=== PATIENT | female | born 1945 | race Caucasian/White ===

== ENCOUNTER 2022-03-11 07:01 | Day surgery (SDC) | payer OTHER ==
[2022-03-08 09:46] LABS: Absolute Lymphocytes (CBC) 2.3 K/uL (0.7-4.9); Hematocrit 44.7 % (36.0-45.0); Lymphocytes % 37.2 % (15.3-44.8); RBC Red Blood Cell Count 4.98 M/uL (3.86-4.86)
[2022-03-08 09:56] LABS: Protime INR 0.9
[2022-03-08 09:59] LABS: Potassium 4.3 mmol/L (3.5-5.1)
--- NOTE | 2022-03-08 11:05 | EKG ---
Test Date: 2022-03-08 Test Time: 08:33:44 [employer]: T MEASUREMENT RESULTS: Intervals: Rate: 78 DC: 164 QRSD: 82 QT: 378 QTc: 430 [place]: P: 59 DC: 164 QRS: 23 T: 76 INTERPRETIVE STATEMENTS: Normal sinus rhythm Normal ECG Compared to ECG 05/05/2016 06:34:09 No significant changes Electronically Signed On 03-08-22 11:04:45 CDT by Js Sorensen
[2022-03-11] MEDS: Ringers Lactate 1,000 ML IV ONE ×2 (07:20→07:37)
[2022-03-11] MEDS ORDERED: BUPIVACAINE 0.25% PF 10 ML VIAL ONE ×2 (07:23→07:24)
[2022-03-11] MEDS: CLINDAMYCIN 600MG/D5W 600 MG/50 ML BAG IV SCH ×2 (07:38→08:15)
[2022-03-11] MEDS ORDERED: propofoL 200 MG/20 ML VIAL IV ONE (07:46)
[2022-03-11] MEDS ORDERED: MIDAZOLAM HCL 2 MG/2 ML INJ ONE (07:46)
[2022-03-11] MEDS ORDERED: ONDANSETRON 4 MG/2 ML VIAL ONE ×2 (07:46→08:34)
[2022-03-11] MEDS ORDERED: LIDOCAINE 2% MPF 5 ML VIAL ONE (07:46)
[2022-03-11] MEDS ORDERED: FENTANYL CITR 100 MCG/2 ML ONE (07:46)
[2022-03-11] MEDS ORDERED: dexAMETHasone 10 MG/ML VIAL ONE (08:35)
[2022-03-11] MEDS ORDERED: EPHEDRINE SULF 50 MG/ML VIAL ONE (08:55)
--- NOTE | 2022-03-11 09:15 | P.BOP ---
Preoperative diagnosis: right knee medial meniscus tear, medial femoral condyle chondromalacia Postoperative diagnosis: same, right knee lateral meniscus tear Primary procedure: right knee arthroscopic partial medial meniscectomy Lifter/Driver: NONE,NONE Estimated blood loss: 3 cc Specimen: none Findings: see dictation Anesthesia: General Complications: None Implants: none Fluids & blood products: per anesthesia record; TT: 24 mins @ 300 mmHg Transferred to: Recovery Room Condition: Good
[2022-03-11] MEDS ORDERED: KETOROLAC 30 MG/ML INJ ONE (09:21)
[2022-03-11 13:07] VITALS: BP 131/70; O2SAT 96
[2022-03-11 13:21] VITALS: TEMP 97
--- NOTE | 2022-03-11 20:47 | OP ---
Date of Procedure: 03/11/2022 Surgeon: Glen Bynum MD Preoperative Diagnoses: 1.Right knee medial meniscus tear. 2.Right knee medial femoral condyle chondromalacia. Postoperative Diagnoses: 1.Right knee medial meniscus tear. 2.Right knee medial femoral condyle chondromalacia. 3.Right knee lateral meniscus tear. Procedures Performed: 1.Right knee arthroscopic partial medial meniscectomy. 2.Right knee arthroscopic partial lateral meniscectomy. Anesthesia: General LMA. Fluids: Per Anesthesia record. Estimated Blood Loss: 3 cc. Tourniquet Time: 24 minutes at 300 mmHg. Complications: None. Indication For Procedure: Radha is a 76-year-old female, who presented to my clinic with signs, sym ptoms, and MRI findings consistent with a right knee medial meniscus tear and chondromalacia of the m edial femoral condyle. I discussed with the patient at length risks and benefits associated with ope rative and nonoperative treatment. She expressed understanding and elected to proceed with operative treatment. Description Of Procedure: After informed consent was obtained, the patient was identified in the pre operative holding area. The right lower extremity was marked. The patient was then brought back to the operating room, transferred to the operating table in supine fashion, placed under general LMA an esthesia. The right lower extremity was then prepped and draped in usual sterile fashion. A time-ou t was initiated. Correct patient and procedure were confirmed and identified. The patient did recei ve her preoperative prophylactic antibiotics. The right lower extremity was exsanguinated using an E smarch and the tourniquet was inflated to 300 mmHg. Standard anteromedial and anterolateral portals were created. The arthroscope was brought in via the anterolateral portal and a diagnostic arthrosco py was performed. Arthroscope was then first brought into the patellofemoral joint where the patient was noted to have some grade 3 chondromalacia changes of the trochlear groove. There were no loose bodies found within the medial and lateral gutters. The arthroscope was then brought into the medial compartment where the patient was noted to have some grade 4 chondromalacia of the medial femoral co ndyle. The patient was noted to have a complex tear of the posterior horn and body of the medial men iscus and a partial medial meniscectomy was performed using meniscal biters and arthroscopic shaver t o smooth meniscal borders. After the partial meniscectomy was performed, the meniscus was stable to probe. The arthroscope was then brought in the intercondylar notch. The patient was noted to have a n intact ACL and PCL. The arthroscope was then brought into lateral compartment where the patient wa s noted to have some mild grade 1 chondromalacia changes and a tear at the lateral meniscus body. Pa rtial lateral meniscectomy was then performed using meniscal biters and arthroscopic shaver to smooth meniscal borders. The arthroscopic instruments were then removed without complication. Wounds were then irrigated thoroughly with normal saline. Skin was approximated using a 4-0 Monocryl. Sterile dressings were applied. Tourniquet was let down. The patient was awakened and transferred to PACU i n stable condition. Postoperative Plan: The patient will follow up in one week for wound check. We will order physical therapy for post-meniscectomy protocol to aid with mobilization. KISHOR/BIRDIE Voice ID: [id number] Report ID: [id number]
== END 2022-03-11 10:50 | disposition home or self-care (01) ==
LOC: OR 07:01
PROVIDERS: ATTEND Orthopaedic Surgery Sports Medicine
PROC: 0SBC4ZZ Excision of Right Knee Joint, Percutaneous Endoscopic Approach (ICD-10-PCS; 2022-03-11)
PROC: 0SBC4ZZ Excision of Right Knee Joint, Percutaneous Endoscopic Approach (ICD-10-PCS; principal; 2022-03-11 08:00)
DX: S83.241A Other tear of medial meniscus, current injury, right knee, initial encounter (principal); S83.281A Other tear of lateral meniscus, current injury, right knee, initial encounter; M94.261 Chondromalacia, right knee; Z20.822 Contact with and (suspected) exposure to COVID-19
CPT/HCPCS: 29880; 93005; 85025; 80048; 36415; 85610; 85730; U0002; J2704; J2250; J3010; J1100; J7120; J2405 ×2

== ENCOUNTER 2023-07-27 14:38 | Emergency (ER) | payer OTHER ==
--- OUTSIDE RECORDS SUMMARY | 2023-07-27 14:42 | XMS REPORT | Continuity of Care Document ---
:1945 Author Organization [facility] t Address [address] [facility] [address] [place] [address] Care Team Providers Name Role Phone Julio Hicks MD Primary Care Physician Marilyn Terry Attending Clinician Unavailable [email or web address] Attending Clinician Unavailable FOG_A_Provider Attending Clinician Unavailable Lenard Toure Attending Clinician Unavailable Hussein Pearson MD Attending Clinician Only, Adc Test Attending Clinician Unavailable Hiram Calderon MD Attending Clinician HIRAM CALDERON Attending Clinician Unavailable Doctor Unassigned, [place] Attending Clinician Unavailable Provider, [facility] Attending Clinician Unavailable Phuong Bazan Attending Clinician Dilma Zhao RN Attending Clinician Unavailable Unknown, Attending Attending Clinician Unavailable UNKNOWN, ATTENDING Attending Clinician Unavailable [email or web address]_S Admitting Clinician Unavailable FOG_A_Provider Admitting Clinician Unavailable Lenard Toure Admitting Clinician Unavailable Payers Payer Name Policy Type Policy Number Effective Date Expiration Date S shai GALEANAErnestoDEYSI [id number] 2019 00:00:00 [employer] (MEDICARE [id number] 2022 REPLACEMENT PPO) 00:00:00 MEDICARE PART A \T\ [id number] 2011 B 00:00:00 [employer] INDEMNITY [id number] 2013 00:00:00 Problems Condition Condition Condition Status Onset Resolution Last Treating Co mments Source Name Details Category Date Date Treatment Clinician Date SOB SOB Disease Active 2019-09 [facility] (shortness (shortness 0-06 st of breath) of breath) 00:00: Ho spita 00 l Carotid Carotid Disease Active 2019-09 [facility] bruit bruit 0-06 st 00:00: Hospita 00 l Hyperlipid Hyperlipid Disease Active 2019-09 M ethodi emia emia 0-06 st 00:00: Hospita 00 l No known No known Disease Unive rs active active ity of problems problems [facility] Allergies, Adverse Reactions, Alerts Allergy Allergy Status Severity Reaction(s) Onset Inactive Treating Comm ents Source Name Type Date Date Clinician SULFA Drug Active Hives 2016-09 Univers (SULFONA Class 0-16 ity of MIDE 00:00: [place] ANTIBIOT 00 Medical ICS) Branch Sulfa Propensi Active Hives 2016-09 Univers (Sulfona ty to 0-16 ity of mide adverse 00:00: [place] Antibiot reaction 00 Medica l ics) s Branch Sulfa Propensi Active Hives 2016-09 Methodi (Sulfona ty to 0-16 st mide adverse 00:00: Hospita Antibiot reaction 00 l ics) s to drug ALBUTERO DRUG Active Med Palpitations 2014-09 Un dave L INGREDI 11-03 ity of 00:00: [place] 00 Medical Branch AMOXICIL DRUG Active Med ITCHING 2014-09 Univers ANDREW-POT 11-03 ity of CLAVULAN 00:00: [place] ATE 00 Medical Branch ERGOTAMI DRUG Active Med N/V 2014-09 Univers NE-CAFFE 11-03 ity of INE 00:00: [place] 00 Medical Branch CEFACLOR DRUG Active Med ITCHING 2014-09 Univers INGREDI 11-03 ity of 00:00: [place] 00 Medical Branch CIPROFLO DRUG Active Med ITCHING 2014-09 Univers XACIN INGREDI - ity of 00:00: [place] 00 Medical Branch ROSUVAST DRUG Active Med Other-Cmnt 2014-09 Univ ers ATIN INGREDI 2- ity of CALCIUM 00:00: [place] 00 Medical Branch DOXYCYCL DRUG Active Med ITCHING 2014-09 Univers INE INGREDI 11-03 ity of 00:00: [place] 00 Medical Branch ERYTHROM DRUG Active Med ITCHING 2014-09 Univers YCIN - ity of 00:00: [place] 00 Medical Branch IPRATROP DRUG Active Med Palpitations 2014-09 Un dave IUM INGREDI 11-03 ity of BROMIDE 00:00: [place] 00 Medical Branch ATORVAST DRUG Active Med Other-Cmnt 2014-09 Univ ers ATIN INGREDI - ity of CALCIUM 00:00: [place] 00 Medical Branch SELDANE DRUG Active Med ITCHING 2014-09 Univers 11-03 ity of 00:00: [place] 00 Medical Branch CEFIXIME DRUG Active Med ITCHING 2014-09 Univers INGREDI 11-03 ity of 00:00: [place] 00 Medical Branch FENOFIBR DRUG Active Med Other-Cmnt 2014-09 Univ ers ATE 11-03 ity of MICRONIZ 00:00: [place] ED 00 Medical Branch EZETIMIB DRUG Active Med Other-Cmnt 2014-09 Univ ers E-SIMVAS -09 ity of TATIN 00:00: [place] 00 Medical Branch SIMVASTA DRUG Active Med Other-Cmnt 2014-09 Univ ers TIN INGREDI 11-03 ity of 00:00: [place] 00 Medical Branch Erythrom Propensi Active Rash 2014-09 Method i ycin ty to 11-03 st adverse 00:00: Hospita reaction 00 l s to drug Ezetimib Propensi Active Other (See 2014-09 Leg [facility] e-Simvas ty to Comments) 11-[address] tatin adverse 00:00: Hospita reaction 00 l s to drug Fenofibr Propensi Active Other (See 2014-09 Leg [facility] ate ty to Comments) 11-[address] Microniz adverse 00:00: Hospita ed reaction 00 l s to drug Ipratrop Propensi Active Palpitations 2014-09 Methodi ium ty to 11-03 st [place] adverse 00:00: Hospita reaction 00 l s to drug Rosuvast Propensi Active Other (See 2014-09 Leg Me [facility] atin ty to Comments) 11-[address] Calcium adverse 00:00: Hospita reaction 00 l s to drug Seldane Propensi Active Rash 2014-09 Methodi ty to 11-03 st adverse 00:00: Hospita reaction 00 l s to drug Simvasta Propensi Active Other (See 2014-09 Issues Me thodi tin ty to Comments) 11-[address] adverse 00:00: liver Hospita reaction 00 function l s to drug Albutero Propensi Active Palpitations 2014-09 Methodi l ty to 11-03 st adverse 00:00: Hospita reaction 00 l s to drug Amoxicil Propensi Active Rash 2014-09 Method i andrew-Pot ty to 11-03 Clavulan adverse 00:00: Hospita ate reaction 00 l s to drug Atorvast Propensi Active Other (See 2014-09 Leg [facility] atin ty to Comments) 11-[address] Calcium adverse 00:00: Hospita reaction 00 l s to drug Cefaclor Propensi Active Rash 2014-09 Method i ty to 11-03 adverse 00:00: Hospita reaction 00 l s to drug Cefixime Propensi Active Rash 2014-09 Method i ty to 11-03 adverse 00:00: Hospita reaction 00 l s to drug Ciproflo Propensi Active Rash 2014-09 Method i xacin ty to 11-03 adverse 00:00: Hospita reaction 00 l s to drug Doxycycl Propensi Active Rash 2014-09 Method i ine ty to 11-03 adverse 00:00: Hospita reaction 00 l s to drug Ergotami Propensi Active Other (See 2014-09 Me thodi ne-Caffe ty to Comments) 11-03 st ine adverse 00:00: Hospita reaction 00 l s to drug Social History Social Habit Start Date Stop Date Quantity Comments Source Gender [facility] St[facility] al History SDOH [facility] SDND [facility] Comment Hospital Exposure to Not sure University of SARS-CoV-2 (event) [facility] Sexual orientation [facility] Tobacco use and 2020-10-22 2020-10-22 Never used Universit y of exposure 00:00:00 00:00:00 [facility] History SDOH 2020-06-30 2020-06-30 1 [facility] Frequency 00:00:00 00:00:00 Hospita l Alcohol intake 2020-06-30 2020-06-30 Lifetime [facility] 00:00:00 00:00:00 non-drinker Hospital (finding) History of Social 2020-06-30 2020-06-[address] function 00:00:00 00:00:00 Hospital Sex Ass[birth year] At [birth year] [facility] 00:00[facility]00 Hospital Smoking Status Start Date Stop Date Source Never smoker [facility] Branch Medications Ordered Filled Start Stop Current Ordering Indication Dosage Frequency Signature Comments Components Source Medication Medication Date Date Medication? Clinician (SIG) Name Name DULoxetine 2020- No TAKE 1 Univ ers 30 mg 10-01 CAPSULE BY ity of capsule 00:00: 00:00 MOUTH ONCE [place] as 00 :00 A DAY . Medical TOTAL DOSE Branch 90MG lamoTRIgine 2019-09 Yes 25mg Q.5D Take 25 mg Methodi (LaMICtal) 0-[address] 25 MG 15:00: (two) Hospita tablet 40 times a l day. fluticasone 2019-09 Yes Inhale. Met hodi furoate 0-06 st (Arnuity 15:00: Hospita Ellipta) 40 l 200 mcg/actuati on blister with device methylpheni 2019-09 Yes 54mg Take 54 mg Methodi date HCl 0-[address] (CONCERTA) 15:00: Hospita 54 MG CR 40 l tablet fluticasone 2019-09 Yes 1{spray 1 spray Methodi propionate 0-06 } into each st (FLONASE) 15:00: nostril. Hosp yury 50 40 l mcg/actuati on nasal spray etodolac 2019-09 Yes 400mg Take 400 Meth chin (LODINE) 0-[address] 400 MG 15:00: mouth. Hospita tablet 40 l metoprolol 2019- Yes 50mg Q.5D Take 50 mg M ethodi tartrate 0-[address] (LOPRESSOR) 15:00: (two) Hospi ta 50 mg 40 times a l tablet day. methylpheni 2019- Yes 54mg Take 54 mg Methodi date HCl 0-[address] (CONCERTA) 15:00: Hospita 54 MG CR 40 l tablet fluticasone 2019-09 Yes 1{spray 1 spray Methodi propionate 0-06 } into each st (FLONASE) 15:00: nostril. Hosp yury 50 40 l mcg/actuati on nasal spray etodolac 2019-09 Yes 400mg Take 400 Meth chin (LODINE) 0-[address] 400 MG 15:00: mouth. Hospita tablet 40 l metoprolol 2019-09 Yes 50mg Q.5D Take 50 mg M ethodi tartrate 0-[address] (LOPRESSOR) 15:00: (two) Hospi ta 50 mg 40 times a l tablet day. olopatadine 2019-09 Yes Apply to Me thodi (Pazeo) 0.7 0-[address] % drops 15:00: Hospita 40 l lamoTRIgine 2019-09 Yes 25mg Q.5D Take 25 mg Methodi (LaMICtal) 0-[address] 25 MG 15:00: (two) Hospita tablet 40 times a l day. fluticasone 2019-09 Yes Inhale. Met hodi furoate 0-06 st (Arnuity 15:00: Hospita Ellipta) 40 l 200 mcg/actuati on blister with device olopatadine 2019-09 Yes Apply to Me thodi (Pazeo) 0.7 0-[address] % drops 15:00: Hospita 40 l lamoTRIgine 2019-09 Yes 25mg Q.5D Take 25 mg Methodi (LaMICtal) 0-[address] 25 MG 15:00: (two) Hospita tablet 40 times a l day. fluticasone 2019-09 Yes Inhale. Met hodi furoate 0-06 st (Arnuity 15:00: Hospita Ellipta) 40 l 200 mcg/actuati on blister with device methylpheni 2019-09 Yes 54mg Take 54 mg Methodi date HCl 0-[address] (CONCERTA) 15:00: Hospita 54 MG CR 40 l tablet fluticasone 2019-09 Yes 1{spray 1 spray Methodi propionate 0-06 } into each st (FLONASE) 15:00: nostril. Hosp yury 50 40 l mcg/actuati on nasal spray etodolac 2019- Yes 400mg Take 400 Meth chin (LODINE) 0-[address] 400 MG 15:00: mouth. Hospita tablet 40 l metoprolol 2020- Yes 50mg Q.5D Take 50 mg M ethodi tartrate 0-[address] (LOPRESSOR) 15:00: (two) Hospi ta 50 mg 40 times a l tablet day. olopatadine 2019-09 Yes Apply to Me thodi (Pazeo) 0.7 0-[address] % drops 15:00: Hospita 40 l lamoTRIgine 2020- Yes 25mg Q.5D Take 25 mg Methodi (LaMICtal) 0-[address] 25 MG 15:00: (two) Hospita tablet 40 times a l day. fluticasone 2019- Yes Inhale. Met hodi furoate 0-06 st (Arnuity 15:00: Hospita Ellipta) 40 l 200 mcg/actuati on blister with device methylpheni 2019-09 Yes 54mg Take 54 mg Methodi date HCl 0-[address] (CONCERTA) 15:00: Hospita 54 MG CR 40 l tablet fluticasone 2019-09 Yes 1{spray 1 spray Methodi propionate 0-06 } into each st (FLONASE) 15:00: nostril. Hosp yury 50 40 l mcg/actuati on nasal spray etodolac 2019-09 Yes 400mg Take 400 Meth chin (LODINE) 0-[address] 400 MG 15:00: mouth. Hospita tablet 40 l metoprolol 2020- Yes 50mg Q.5D Take 50 mg M ethodi tartrate 0-[address] (LOPRESSOR) 15:00: (two) Hospi ta 50 mg 40 times a l tablet day. olopatadine 2019- Yes Apply to Me thodi (Pazeo) 0.7 0-[address] % drops 15:00: Hospita 40 l lamoTRIgine 2020- Yes 25mg Q.5D Take 25 mg Methodi (LaMICtal) 0-[address] 25 MG 15:00: (two) Hospita tablet 40 times a l day. fluticasone 2020- Yes Inhale. Met hodi furoate 0-06 st (Arnuity 15:00: Hospita Ellipta) 40 l 200 mcg/actuati on blister with device methylpheni 2020-1 Yes 54mg Take 54 mg Methodi date HCl 0-[address] (CONCERTA) 15:00: Hospita 54 MG CR 40 l tablet fluticasone 2019-09 Yes 1{spray 1 spray Methodi propionate 0-06 } into each st (FLONASE) 15:00: nostril. Hosp yury 50 40 l mcg/actuati on nasal spray etodolac 2019- Yes 400mg Take 400 Meth chin (LODINE) 0-[address] 400 MG 15:00: mouth. Hospita tablet 40 l metoprolol 2019- Yes 50mg Q.5D Take 50 mg M ethodi tartrate 0-[address] (LOPRESSOR) 15:00: (two) Hospi ta 50 mg 40 times a l tablet day. olopatadine 2019-09 Yes Apply to Me thodi (Pazeo) 0.7 0-[address] % drops 15:00: Hospita 40 l lamoTRIgine 2019-09 Yes 25mg Q.5D Take 25 mg Methodi (LaMICtal) 0-[address] 25 MG 15:00: (two) Hospita tablet 40 times a l day. fluticasone 2019-09 Yes Inhale. Met hodi furoate 0-06 st (Arnuity 15:00: Hospita Ellipta) 40 l 200 mcg/actuati on blister with device methylpheni 2019- Yes 54mg Take 54 mg Methodi date HCl 0-[address] (CONCERTA) 15:00: Hospita 54 MG CR 40 l tablet fluticasone 2019- Yes 1{spray 1 spray Methodi propionate 0-06 } into each st (FLONASE) 15:00: nostril. Hosp yury 50 40 l mcg/actuati on nasal spray etodolac 2019- Yes 400mg Take 400 Meth chin (LODINE) 0-[address] 400 MG 15:00: mouth. Hospita tablet 40 l metoprolol 2020- Yes 50mg Q.5D Take 50 mg M ethodi tartrate 0-[address] (LOPRESSOR) 15:00: (two) Hospi ta 50 mg 40 times a l tablet day. olopatadine 2019- Yes Apply to Me thodi (Pazeo) 0.7 0-[address] % drops 15:00: Hospita 40 l lamoTRIgine 2020- Yes 25mg Q.5D Take 25 mg Method[facility] (LaMICtal) 0-[address] 25 MG 15:00: (two) Hospita tablet 40 times a l day. fluticasone 2019- Yes Inhale. Met hodi furoate 0-06 st (Arnuity 15:00: Hospita Ellipta) 40 l 200 mcg/actuati on blister with device methylpheni 2019-1 Yes 54mg Take 54 mg Method[facility] date HCl 0-[address] (CONCERTA) 15:00: Hospita 54 MG CR 40 l tablet fluticasone 2019-09 Yes 1{spray 1 spray Methodi propionate 0-06 } into each st (FLONASE) 15:00: nostril. Hosp yury 50 40 l mcg/actuati on nasal spray etodolac 2019-09 Yes 400mg Take 400 Meth chin (LODINE) 0-[address] 400 MG 15:00: mouth. Hospita tablet 40 l metoprolol 2019- Yes 50mg Q.5D Take 50 mg M ethodi tartrate 0-[address] (LOPRESSOR) 15:00: (two) Hospi ta 50 mg 40 times a l tablet day. olopatadine 2019-09 Yes Apply to Me thodi (Pazeo) 0.7 0-[address] % drops 15:00: Hospita 40 l lamoTRIgine 2019- Yes 25mg Q.5D Take 25 mg Methodi (LaMICtal) 0-[address] 25 MG 15:00: (two) Hospita tablet 40 times a l day. fluticasone 2019- Yes Inhale. Met hodi furoate 0-06 st (Arnuity 15:00: Hospita Ellipta) 40 l 200 mcg/actuati on blister with device methylpheni 2019-1 Yes 54mg Take 54 mg Methodi date HCl 0-[address] (CONCERTA) 15:00: Hospita 54 MG CR 40 l tablet fluticasone 2019- Yes 1{spray 1 spray Methodi propionate 0-06 } into each st (FLONASE) 15:00: nostril. Hosp yury 50 40 l mcg/actuati on nasal spray etodolac 2019-09 Yes 400mg Take 400 Meth chin (LODINE) 0-[address] 400 MG 15:00: mouth. Hospita tablet 40 l metoprolol 2019-09 Yes 50mg Q.5D Take 50 mg M ethodi tartrate 0-[address] (LOPRESSOR) 15:00: (two) Hospi ta 50 mg 40 times a l tablet day. olopatadine 2019-09 Yes Apply to Me thodi (Pazeo) 0.7 0-[address] % drops 15:00: Hospita 40 l DULoxetine Yes TK 1 C PO Me thodi (CYMBALTA) 9-[address] 60 MG 00:00: Hospita capsule 00 l DULoxetine Yes TK 1 C PO Me thodi (CYMBALTA) 9-[address] 60 MG 00:00: Hospita capsule 00 l DULoxetine Yes TK 1 C PO Me thodi (CYMBALTA) 9-[address] 60 MG 00:00: Hospita capsule 00 l DULoxetine Yes TK 1 C PO Me thodi (CYMBALTA) 9-[address] 60 MG 00:00: Hospita capsule 00 l DULoxetine Yes TK 1 C PO Me thodi (CYMBALTA) 9-[address] 60 MG 00:00: Hospita capsule 00 l DULoxetine Yes TK 1 C PO Me thodi (CYMBALTA) 9-[address] 60 MG 00:00: Hospita capsule 00 l DULoxetine Yes TK 1 C PO Me thodi (CYMBALTA) 9-[address] 60 MG 00:00: Hospita capsule 00 l DULoxetine Yes TK 1 C PO Me thodi (CYMBALTA) 9-[address] 60 MG 00:00: Hospita capsule 00 l rosuvastati Yes TAKE 1 Meth chin n (CRESTOR) 9-[address] 10 mg 00:00: EVERY DAY Hospita tablet 00 l rosuvastati Yes TAKE 1 Meth chin n (CRESTOR) 9-[address] 10 mg 00:00: EVERY DAY Hospita tablet 00 l rosuvastati Yes TAKE 1 Meth chin n (CRESTOR) 9-[address] 10 mg 00:00: EVERY DAY Hospita tablet 00 l rosuvastati Yes TAKE 1 Meth chin n (CRESTOR) 9-[address] 10 mg 00:00: EVERY DAY Hospita tablet 00 l rosuvastati Yes TAKE 1 Meth chin n (CRESTOR) 9-[address] 10 mg 00:00: EVERY DAY Hospita tablet 00 l rosuvastati Yes TAKE 1 Meth chin n (CRESTOR) 9-[address] 10 mg 00:00: EVERY DAY Hospita tablet 00 l rosuvastati Yes TAKE 1 Meth chin n (CRESTOR) 9-[address] 10 mg 00:00: EVERY DAY Hospita tablet 00 l rosuvastati Yes TAKE 1 Meth chin n (CRESTOR) 9-[address] 10 mg 00:00: EVERY DAY Hospita tablet 00 l beclomethas 2014-09 Yes 1{puff} Inhale 1 Univers one 2-17 Puff ity of dipropionat 17:38: [place] (QVAR[place] 80 29 Medical mcg/actuati Branch on inhaler fluticasone 2014-09 Yes 1{spray Use 1 Un dave (FLONASE) 2-17 } [place] in ity of 50 17:38: each [facility]/actuati nostril Medic al on nasal daily. Branch spray etodolac 2014-09 Yes 400mg Take 400 Univ ers (LODINE) 2-17 mg by ity of 400 mg 17:38: mouth [place] tablet 29 daily. Medical Branch traZODONE 2014-09 Yes 100mg Take 100 Uni vers (DESYREL) 2-17 mg by ity of 100 mg 17:38: mouth at [place] tablet 29 bedtime. Medical Branch aspirin 81 2014-09 Yes 81mg Take 81 mg U nivers mg EC 2-17 by mouth ity of tablet 17:38: daily. [place] [address] Medical Branch CALCIUM 2014-09 Yes 1{tbl} Take 1 Tab Un dave CARB/VIT 2-17 by mouth ity of D2/MINERALS 17:38: daily. [place] s (CALTRATE 29 Medical PLUS ORAL) Branch MULTIVITAMI 2014-09 Yes 1{tbl} Take 1 Tab Univers N ORAL 2-17 by mouth ity of 17:38: daily. [address] Branch beclomethas 2014-09 Yes 1{puff} Inhale 1 Univers one 2-17 Puff daily ity of dipropionat 17:38: [place] (QVAR[place] 80 29 meal. Medical mcg/actuati Branch on inhaler metoprolol 2014-09 Yes 25mg Take 25 mg U nivers tartrate 2-17 by mouth 2 ity o f (LOPRESSOR) 17:38: (two) [place] 25 mg 29 times Medical tablet daily. Branch Indication s: Pt takes for migraines, not high BP DULoxetine 2014-09 Yes 60mg Take 60 mg U nivers (CYMBALTA) 2-17 by mouth ity o f 60 mg 17:38: daily. [place] capsule 29 Medical Branch methylpheni 2014-09 Yes 54mg Take 54 mg Univers date 2-17 by mouth ity of (CONCERTA) 17:38: daily. [place] 54 mg 24 hr 29 Medical tablet Branch L-Methylfol 2014-09 Yes 1{tbl} Take 1 Tab Univers ate 2-17 by mouth ity of (DEPLIN) 15 17:38: [place]. [place] Tab 29 [facility] Branch lamoTRIgine 2014-09 Yes 50mg Take 50 mg Univers (LAMICTAL) 2-17 by mouth ity o f 100 mg 17:38: daily. [place] tablet 29 Medical Branch beclomethas 2014-09 Yes 1{puff} Inhale 1 Univers one 2-17 Puff ity of dipropionat 17:38: [place]. [place] (QVAR[place] 80 29 Medical [facility]/actuati Branch on inhaler fluticasone 2014-09 Yes 1{spray Use 1 Un dave (FLONASE) 2-17 } [place] in ity of 50 17:38: each [facility] Medic al on nasal daily. Branch spray etodolac 2014-09 Yes 400mg Take 400 Univ ers (LODINE) 2-17 mg by ity of 400 mg 17:38: mouth [place] tablet 29 daily. Medical Branch traZODONE 2014-09 Yes 100mg Take 100 Uni vers (DESYREL) 2-17 mg by ity of 100 mg 17:38: mouth at [place] tablet 29 bedtime. Medical Branch aspirin 81 2014-09 Yes 81mg Take 81 mg U nivers mg EC 2-17 by mouth ity of tablet 17:38: daily. [address] Branch CALCIUM 2014-09 Yes 1{tbl} Take 1 Tab Un dave CARB/VIT 2-17 by mouth ity of D2/MINERALS 17:38: [place]. [place] (CALTRATE 29 Medical PLUS ORAL) Branch MULTIVITAMI 2014-09 Yes 1{tbl} Take 1 Tab Univers N ORAL 2-17 by mouth ity of 17:38: daily. [address] Branch beclomethas 2014-09 Yes 1{puff} Inhale 1 Univers one 2-17 Puff daily ity of dipropionat 17:38: [place] (QVAR[place] 80 29 meal. Medical mcg/actuati Branch on inhaler metoprolol 2014-09 Yes 25mg Take 25 mg U nivers tartrate 2-17 by mouth 2 ity o f (LOPRESSOR) 17:38: (two) [place] 25 mg 29 times Medical tablet daily. Branch Indication s: Pt takes for migraines, not high BP DULoxetine 2014-09 Yes 60mg Take 60 mg U nivers (CYMBALTA) 2-17 by mouth ity o f 60 mg 17:38: daily. [place] capsule 29 [facility] Branch methylpheni 2014-09 Yes 54mg Take 54 mg Univers date 2-17 by mouth ity of (CONCERTA) 17:38: daily. [place] 54 mg 24 hr 29 Medical tablet Branch L-Methylfol 2014-09 Yes 1{tbl} Take 1 Tab Univers ate 2-17 by mouth ity of (DEPLIN) 15 17:38: daily. [place] mg Tab 29 Medical Branch lamoTRIgine 2014-09 Yes 50mg Take 50 mg Univers (LAMICTAL) 2-17 by mouth ity o f 100 mg 17:38: daily. [place] tablet 29 Medical Branch beclomethas 2014-09 Yes 1{puff} Inhale 1 Univers one 2-17 Puff ity of dipropionat 17:38: daily. [place] (QVAR) 80 29 Medical mcg/actuati Branch on inhaler fluticasone 2014-09 Yes 1{spray Use 1 Un dave (FLONASE) 2-17 } [place] in ity of 50 17:38: each [facility]/actuati 29 nostril Medic al on nasal daily. Branch spray etodolac 2014-09 Yes 400mg Take 400 Univ ers (LODINE) 2-17 mg by ity of 400 mg 17:38: mouth [place] tablet 29 daily. Medical Branch traZODONE 2014-09 Yes 100mg Take 100 Uni vers (DESYREL) 2-17 mg by ity of 100 mg 17:38: mouth at [place] tablet 29 bedtime. Medical Branch aspirin 81 2014-09 Yes 81mg Take 81 mg U nivers mg EC 2-17 by mouth ity of tablet 17:38: daily. [address] Branch CALCIUM 2014-09 Yes 1{tbl} Take 1 Tab Un dave CARB/VIT 2-17 by mouth ity of D2/MINERALS 17:38: daily. [place] (CALTRATE 29 Medical PLUS ORAL) Branch MULTIVITAMI 2014-09 Yes 1{tbl} Take 1 Tab Univers N ORAL 2-17 by mouth ity of 17:38: daily. [address] Branch beclomethas 2014-09 Yes 1{puff} Inhale 1 Univers one 2-17 Puff daily ity of dipropionat 17:38: [place] (QVAR[place] 80 29 meal. Medical [facility] [place]/actuati Branch on inhaler metoprolol 2014-09 Yes 25mg Take 25 mg U nivers tartrate 2-17 by mouth 2 ity o f (LOPRESSOR) 17:38: (two) [place] 25 mg 29 times Medical tablet daily. Branch Indication s: Pt takes for migraines, not high BP DULoxetine 2014-09 Yes 60mg Take 60 mg U nivers (CYMBALTA) 2-17 by mouth ity o f 60 mg 17:38: daily. [place] capsule 29 [facility] Branch methylpheni 2014-09 Yes 54mg Take 54 mg Univers date 2-17 by mouth ity of (CONCERTA) 17:38: daily. [place] 54 mg 24 hr 29 Medical tablet Branch L-Methylfol 2014-09 Yes 1{tbl} Take 1 Tab Univers ate 2-17 by mouth ity of (DEPLIN) 15 17:38: daily. [place] Tab 29 Medical Branch lamoTRIgine 2014-09 Yes 50mg Take 50 mg Univers (LAMICTAL) 2-17 by mouth ity o f 100 mg 17:38: daily. [place] tablet Medical Branch beclomethas 2014-09 Yes 1{puff} Inhale 1 Univers one 2-17 Puff ity of dipropionat 17:38: daily. [place] (QVAR) 80 29 Medical mcg/actuati Branch on inhaler fluticasone 2014-09 Yes 1{spray Use 1 Un dave (FLONASE) 2-17 } [place] in ity of 50 17:38: each [facility]/actuati 29 nostril Medic al on nasal daily. Branch spray etodolac 2014-09 Yes 400mg Take 400 Univ ers (LODINE) 2-17 mg by ity of 400 mg 17:38: mouth [place] tablet 29 daily. Medical Branch traZODONE 2014-09 Yes 100mg Take 100 Uni vers (DESYREL) 2-17 mg by ity of 100 mg 17:38: mouth at [place] tablet 29 bedtime. Medical Branch aspirin 81 2014-09 Yes 81mg Take 81 mg U nivers mg EC 2-17 by mouth ity of tablet 17:38: daily. [address] Branch CALCIUM 2014-09 Yes 1{tbl} Take 1 Tab Un dave CARB/VIT 2-17 by mouth ity of D2/MINERALS 17:38: daily. [place] (CALTRATE 29 Medical PLUS ORAL) Branch MULTIVITAMI 2014-09 Yes 1{tbl} Take 1 Tab Univers N ORAL 2-17 by mouth ity of 17:38: daily. [address] Branch beclomethas 2014-09 Yes 1{puff} Inhale 1 Univers one 2-17 Puff daily ity of dipropionat 17:38: before [place] (QVAR) 80 29 meal. Medical [facility] [place]/actuati Branch on inhaler metoprolol 2014-09 Yes 25mg Take 25 mg U nivers tartrate 2-17 by mouth 2 ity o f (LOPRESSOR) 17:38: (two) [place] 25 mg 29 times Medical tablet daily. Branch Indication s: Pt takes for migraines, not high BP DULoxetine 2014-09 Yes 60mg Take 60 mg U nivers (CYMBALTA) 2-17 by mouth ity o f 60 mg 17:38: daily. [place] capsule 29 Medical Branch methylpheni 2014-09 Yes 54mg Take 54 mg Univers date 2-17 by mouth ity of (CONCERTA) 17:38: daily. [place] 54 mg 24 hr 29 Medical tablet Branch L-Methylfol 2014-09 Yes 1{tbl} Take 1 Tab Univers ate 2-17 by mouth ity of (DEPLIN) 15 17:38: daily. [place] mg Tab 29 Medical Branch lamoTRIgine 2014-09 Yes 50mg Take 50 mg Univers (LAMICTAL) 2-17 by mouth ity o f 100 mg 17:38: daily. [place] tablet 29 Medical Branch beclomethas 2014-09 Yes 1{puff} Inhale 1 Univers one 2-17 Puff ity of [place] 17:38: [place] (QVAR[place] 80 29 Medical mcg/actuati Branch on inhaler fluticasone 2014-09 Yes 1{spray Use 1 Un dave (FLONASE) 2-17 } [place] in ity of 50 17:38: each [facility]/actuati nostril Medic al on nasal daily. Branch spray etodolac 2014-09 Yes 400mg Take 400 Univ ers (LODINE) 2-17 mg by ity of 400 mg 17:38: mouth [place] tablet 29 daily. Medical Branch traZODONE 2014-09 Yes 100mg Take 100 Uni vers (DESYREL) 2-17 mg by ity of 100 mg 17:38: mouth at [place] tablet 29 bedtime. Medical Branch aspirin 81 2014-09 Yes 81mg Take 81 mg U nivers mg EC 2-17 by mouth ity of tablet 17:38: daily. [address] Branch CALCIUM 2014-09 Yes 1{tbl} Take 1 Tab Un dave CARB/VIT 2-17 by mouth ity of D2/MINERALS 17:38: [place]. [place] (CALTRATE 29 Medical PLUS ORAL) Branch MULTIVITAMI 2014-09 Yes 1{tbl} Take 1 Tab Univers N ORAL 2-17 by mouth ity of 17:38: daily. [address] Branch beclomethas 2014-09 Yes 1{puff} Inhale 1 Univers one 2-17 Puff daily [place]y of dipropion[place] 17:38: [place] (QVAR[place] 80 29 meal. Medical mcg/actuati Branch on inhaler metoprolol 2014-09 Yes 25mg Take 25 mg U nivers tartrate 2-17 by mouth 2 ity o f (LOPRESSOR) 17:38: (two) [place] 25 mg 29 times Medical tablet daily. Branch Indication s: Pt takes for migraines, not high BP DULoxetine 2014-09 Yes 60mg Take 60 mg U nivers (CYMBALTA) 2-17 by mouth ity o f 60 mg 17:38: daily. [place] capsule 29 Medical Branch methylpheni 2014-09 Yes 54mg Take 54 mg Univers date 2-17 by mouth ity of (CONCERTA) 17:38: daily. [place] 54 mg 24 hr 29 Medical tablet Branch L-Methylfol 2014-09 Yes 1{tbl} Take 1 Tab Univers ate 2-17 by mouth ity of (DEPLIN) 15 17:38: [place]. [place] mg Tab 29 Medical Branch lamoTRIgine 2014-09 Yes 50mg Take 50 mg Univers (LAMICTAL) 2-17 by mouth ity o f 100 mg 17:38: daily. [place] tablet Medical Branch beclomethas 2014-09 Yes 1{puff} Inhale 1 Univers one 2-17 Puff ity of dipropionat 17:38: daily. [place] (QVAR) 80 Medical mcg/actuati Branch on inhaler fluticasone 2014-09 Yes 1{spray Use 1 Un dave (FLONASE) 2-17 } [place] in ity of 50 17:38: each [place] mcg/actuati 29 nostril Medic al on nasal daily. Branch spray etodolac 2014-09 Yes 400mg Take 400 Univ ers (LODINE) 2-17 mg by ity of 400 mg 17:38: mouth [place] tablet 29 daily. Medical Branch traZODONE 2014-09 Yes 100mg Take 100 Uni vers (DESYREL) 2-17 mg by ity of 100 mg 17:38: mouth at [place] tablet 29 bedtime. Medical Branch aspirin 81 2014-09 Yes 81mg Take 81 mg U nivers mg EC 2-17 by mouth ity of tablet 17:38: daily. [address] Branch CALCIUM 2014-09 Yes 1{tbl} Take 1 Tab Un dave CARB/VIT 2-17 by mouth ity of D2/MINERALS 17:38: [place]. [place] (CALTRATE 29 Medical PLUS ORAL) Branch MULTIVITAMI 2014-09 Yes 1{tbl} Take 1 Tab Univers N ORAL 2-17 by mouth ity of 17:38: daily. [place] [address] Medical Branch beclomethas 2014-09 Yes 1{puff} Inhale 1 Univers one 2-17 Puff daily ity of dipropionat 17:38: [place] (QVAR[place] 80 29 meal. Medical mcg/actuati Branch on inhaler metoprolol 2014-09 Yes 25mg Take 25 mg U nivers tartrate 2-17 by mouth 2 ity o f (LOPRESSOR) 17:38: (two) [place] 25 mg 29 times Medical tablet daily. Branch Indication s: Pt takes for migraines, not high BP DULoxetine 2014-09 Yes 60mg Take 60 mg U nivers (CYMBALTA) 2-17 by mouth ity o f 60 mg 17:38: daily. [place] capsule [address] [place] [address] Branch methylpheni 2014-09 Yes 54mg Take 54 mg Univers date 2-17 by mouth ity of (CONCERTA) 17:38: daily. [place] 54 mg 24 hr 29 Medical tablet Branch L-Methylfol 2014-09 Yes 1{tbl} Take 1 Tab Univers ate 2-17 by mouth ity of (DEPLIN) 15 17:38: [place]. [place] mg Tab 29 Medical Branch lamoTRIgine 2014-09 Yes 50mg Take 50 mg Univers (LAMICTAL) 2-17 by mouth ity o f 100 mg 17:38: daily. [place] tablet Medical [place] Vital Signs Vital Name Observation Time Observation Value Comments Source Heart rate 2020-10-22 19:02:00 114 /min [facility] Oxygen saturation in 2020-10-22 19:02:00 96 /min [facility] Arterial blood by [facility] Pulse oximetry Branch Systolic blood 2020-10-22 17:49:00 145 mm[Hg] Univer sity of pressure [facility] Diastolic blood 2020-10-22 17:49:00 84 mm[Hg] Unive rsity of pressure [facility] Body temperature 2020-10-22 17:49:00 37.33 [facility] height 2020-10-22 17:49:00 160 cm [facility] Body weight 2020-10-22 17:49:00 75.751 kg [facility] [place] [facility] BMI 2020-10-22 17:49:00 29.58 kg/m2 [facility] [place] [facility] Systolic blood 2020-08-29 01:02:00 185 mm[Hg] Univer sity of pressure [place] [facility] Diastolic blood 2020-08-29 01:02:00 101 mm[Hg] Unive rsity of pressure [place] [facility] Heart rate 2020-08-29 00:56:00 72 /min [facility] [place] [facility] Body temperature 2020-08-29 00:56:00 36.22 Valarie Univ ersity of [place] [facility] Respiratory rate 2020-08-29 00:56:00 18 /min Univ ersity [facility] [place] [facility] Body height 2020-08-29 00:56:00 161.3 cm [facility] [place] [facility] Body weight 2020-08-29 00:56:00 75.297 kg [facility] [place] [facility] BMI 2020-08-29 00:56:00 28.94 kg/m2 [facility] [place] [facility] Oxygen saturation in 2020-08-29 00:56:00 100 /min University of Arterial blood by [facility] [place] larissa Pulse oximetry Branch Systolic blood 2020-08-29 01:02:00 185 mm[Hg] Univer sity of pressure [facility] Branch Diastolic blood 2020-08-29 01:02:00 101 mm[Hg] Unive rsity of pressure [place] [facility] Heart rate 2020-08-29 00:56:00 72 /min [facility] [place] [facility] Body temperature 2020-08-29 00:56:00 36.22 Valarie Univ ersity of [place] [facility] Respiratory rate 2020-08-29 00:56:00 18 /min Univ ersity [facility] [place] [facility] Body height 2020-08-29 00:56:00 161.3 cm [facility] [place] [facility] Body weight 2020-08-29 00:56:00 75.297 kg [facility] [place] [facility] BMI 2020-08-29 00:56:00 28.94 kg/m2 [facility] [place] [facility] Oxygen saturation in 2020-08-29 00:56:00 100 /min University of Arterial blood by [place] [facility] larissa Pulse oximetry Branch Procedures Procedure Date / Time Performing Clinician Source Performed ASSIGNMENT OF BENEFITS 2020-11-17 20:13:12 Doctor Unassigned, Un [facility] [place] Medical Branch COVID-19 (MOLECULAR 2020-10-22 17:46:00 Phuong Huynh [facility] TESTING Medical Branch NUCLEIC ACID AMPLIFICATION) LAB ONLY COVID 2020-10-22 17:46:00 Phuong Huynh [facility] INTERPRETATION [facility] Branch POCT GRP A STREP 2020-10-22 00:00:00 Phuong Huynh [facility] (MOLECULAR) [facility] Branch POCT FLU A AND B 2020-10-22 00:00:00 Phuong Huynh [facility] (MOLECULAR) Medical Branch Plan of Care Planned Activity Planned Date Details Comments Source Future Scheduled 2023-07-20 COVID-19 VACCINE (#[facility]) [facility] 16:16:27 [code = COVID-19 VACCINE (#1)] Future Scheduled 2023-07-20 [facility] 16:16:27 (procedure) [code = 829800944] Future Scheduled 2023-07-20 [facility] 16[facility]16:27 of 2) [code = SHINGLES VACCINES (1 of 2)] Future Scheduled 2023-07-20 65+ [facility]OCO[address] [facility] Test 16:16:27 VACCINE (1 - PCV) [code = 65+ PNEUMOCOCCAL VACCINE (1 - PCV)] Future Scheduled 2023-07-20 INFLUENZA VACCINE (#[facility] Test 16:16:27 [code = INFLUENZA VACCINE (#1)] Future Scheduled 2023-03-10 COVID-19 VACCINE (#1) [facility] 01:06:42 [code = COVID-19 VACCINE (#1)] Future Scheduled 2023-03-10 [facility] C [facility] 01:06:42 (procedure) [code = [id number]] Future Scheduled 2023-03-10 SHINGLES VACCINES (1 [facility] 01:06:42 of 2) [code = SHINGLES VACCINES (1 of 2)] Future Scheduled 2023-03-10 65+ [facility]OCOCCAL [facility] Test 01:06:42 VACCINE (1 - PCV) [code = 65+ PNEUMOCOCCAL VACCINE (1 - PCV)] Future Scheduled 2023-03-10 INFLUENZA VACCINE [facility] Test 01:06:42 [code = INFLUENZA VACCINE] Future Scheduled 2022-12-30 COVID-19 VACCINE (#1) [facility] 12:10:32 [code = COVID-19 VACCINE (#1)] Future Scheduled 2022-12-30 [facility] 12:10:32 (procedure) [code = [id number]] Future Scheduled 2022-12-30 COLONOSCOPY SCREENING [facility] 12:10:32 [code = COLONOSCOPY SCREENING] Future Scheduled 2022-12-30 [facility]LES [facility]INES ([facility] 12:10:32 of 2) [code = SHINGLES VACCINES (1 of 2)] Future Scheduled 2022-12-30 65+ PNEUMOCOCCAL [facility] Test 12:10:32 VACCINE (1 - PCV) [code = 65+ PNEUMOCOCCAL VACCINE (1 - PCV)] Future Scheduled 2022-12-30 INFLUENZA VACCINE Method [facility] Test 12:10:32 [code = INFLUENZA VACCINE] Future Scheduled 2022-09-09 COVID[facility]19 [facility]INE (#[facility] 03:39:39 [code = COVID-19 VACCINE (#1)] Future Scheduled 2022-09-09 [facility] Test 03:39:39 (procedure) [code = [id number]] Future Scheduled 2022-09-09 [facility] Test 03:39:39 SCREENING [code = BREAST CANCER SCREENING] Future Scheduled 2022-09-09 COLONOSCOPY SCREENING [facility] Test 03:39:39 [code = COLONOSCOPY SCREENING] Future Scheduled 2022-09-09 SHINGLES VACCINES ([facility] 03:39:39 of 2) [code = SHINGLES VACCINES (1 of 2)] Future Scheduled 2022-09-09 65+ PNEUMOCOCCAL [facility] Hospital Test 03:39:39 VACCINE (1 - PCV) [code = 65+ PNEUMOCOCCAL VACCINE (1 - PCV)] Future Scheduled 2022-09-09 INFLUENZA VACCINE Method ist [facility] Test 03:39:39 [code = INFLUENZA VACCINE] Future Scheduled 2022-09-09 COVID-19 VACCINE (#1) [facility] 03:39:39 [code = COVID-19 VACCINE (#1)] Future Scheduled 2022-09-09 Hepatitis C screening [facility] Test 03:39:39 (procedure) [code = [id number]] Future Scheduled 2022-09-09 [facility] Test 03:39:39 SCREENING [code = BREAST CANCER SCREENING] Future Scheduled 2022-09-09 COLONOSCOPY SCREENING [facility] Test 03:39:39 [code = COLONOSCOPY SCREENING] Future Scheduled 2022-09-09 SHINGLES VACCINES (1 [facility] Test 03:39:39 of 2) [code = SHINGLES VACCINES (1 of 2)] Future Scheduled 2022-09-09 65+ PNEUMOCOCCAL [facility]i Hospital Test 03:39:39 VACCINE (1 - PCV) [code = 65+ PNEUMOCOCCAL VACCINE (1 - PCV)] Future Scheduled 2022-09-09 INFLUENZA VACCINE Method ist Hospital Test 03:39:39 [code = INFLUENZA VACCINE] Future Scheduled 2022-09-09 COVID-19 VACCINE (#1) [facility] Hospital Test 03:39:39 [code = COVID-19 VACCINE (#1)] Future Scheduled 2022-09-09 Hepatitis C screening [facility] Test 03:39:39 (procedure) [code = [id number]] Future Scheduled 2022-09-09 [facility] Test 03:39:39 SCREENING [code = BREAST CANCER SCREENING] Future Scheduled 2022-09-09 COLONOSCOPY SCREENING [facility] Test 03:39:39 [code = COLONOSCOPY SCREENING] Future Scheduled 2022-09-09 SHINGLES VACCINES (1 [facility] Test 03:39:39 of 2) [code = SHINGLES VACCINES (1 of 2)] Future Scheduled 2022-09-09 65+ PNEUMOCOCCAL Methodi Hospital Test 03:39:39 VACCINE (1 - PCV) [code = 65+ PNEUMOCOCCAL VACCINE (1 - PCV)] Future Scheduled 2022-09-09 INFLUENZA VACCINE Method ist Hospital Test 03:39:39 [code = INFLUENZA VACCINE] Future Scheduled 2022-09-09 COVID-19 VACCINE (#1) [facility] Test 03:39:39 [code = COVID-19 VACCINE (#1)] Future Scheduled 2022-09-09 Hepatitis C screening [facility] Test 03:39:39 (procedure) [code = [id number]] Future Scheduled 2022-09-09 [facility] Test 03:39:39 SCREENING [code = BREAST CANCER SCREENING] Future Scheduled 2022-09-09 COLONOSCOPY SCREENING [facility] Test 03:39:39 [code = COLONOSCOPY SCREENING] Future Scheduled 2022-09-09 SHINGLES VACCINES ([facility] 03:39:39 of 2) [code = SHINGLES VACCINES (1 of 2)] Future Scheduled 2022-09-09 65+ PNEUMOCOCCAL Methodi Hospital Test 03:39:39 VACCINE (1 - PCV) [code = 65+ PNEUMOCOCCAL VACCINE (1 - PCV)] Future Scheduled 2022-09-09 INFLUENZA VACCINE Method ist Hospital Test 03:39:39 [code = INFLUENZA VACCINE] Future Scheduled 2021 COVID-19 VACCINE (1) [facility] Test 20:32:41 [code = COVID-19 VACCINE (1)] Future Scheduled 2021 Hepatitis C screening [facility] Test 20:32:41 (procedure) [code = 774986889] Future Scheduled 2021 [facility] Test 20:32:41 SCREENING [code = BREAST CANCER SCREENING] Future Scheduled 2021 COLONOSCOPY SCREENING [facility] Test 20:32:41 [code = COLONOSCOPY SCREENING] Future Scheduled 2021 SHINGLES [facility]ACCINES (#1[facility] 20:32:41 [code = SHINGLES VACCINES (#1)] Future Scheduled 2021 65+ PNEUMOCOCCAL Methodi Hospital Test 20:32:41 VACCINE (1 of 1 - PPSV23) [code = 65+ PNEUMOCOCCAL VACCINE (1 of 1 - PPSV23)] Future Scheduled 2021 INFLUENZA VACCINE Method ist Hospital Test 20:32:41 [code = INFLUENZA VACCINE] Encounters Start End Encounter Admission Attending Care Care Encounter Source Date/Time Date/Time Type Type Clinicians Facility Department ID 2023-04-27 Outpatient Ameen, [facility] [id number] Common 16:38:00 [facility] [id number] [facility] 2022-05-17 Outpatient Ameen [facility] [id number] Common 10:19:02 [facility] [id number] [facility] 2022-03-17 Outpatient Ameen, [facility] [id number] Common 13:12:01 [place] 2022-01-03 Outpatient [facility] [id number] Common 09:52:03 [facility] 2023-07-24 2023-07-24 Outpatient GC_GCBZW_Ka PRIV PRIV [id number] [facility] 00:00:00 00:00:00 sana_Preeti [id number] Medic al 2023-05-16 2023-05-16 Outpatient FOG_A_Provi AOSM AOSM [id number] Nati 00:00:00 00:00:00 to [id number] [facility] 2023-05-02 2023-05-02 Outpatient FOG_A_Provi AOSM AOSM [id number] Nati 00:00:00 00:00:00 to [id number] [facility] 2023-05-02 2023-05-02 Outpatient FOG_A_Provi AOSM AOSM [id number] Nati 00:00:00 00:00:00 to [id number] [facility] 2023-04-26 2023-04-26 Outpatient ANTHONY Hanks [id number] [facility] 10:15:00 10:15:00 [facility] [place] [facility] 2023-04-25 2023-04-25 Outpatient FOG_A_Provi AOSM AOSM [id number] Nati 00:00:00 00:00:00 to [id number] [facility] 2023-04-19 2023-04-19 Outpatient FOG_A_Provi AOSM AOSM [id number] Nati 00:00:00 00:00:00 to [id number] [facility] 2023-04-19 2023-04-19 Outpatient FOG_A_Provi AOSM AOSM [id number] Nati 00:00:00 00:00:00 to [id number] [facility] 2023-03-27 2023-03-27 Outpatient FOG_A_Provi AOSM AOSM [id number] Nati 00:00:00 00:00:00 to [id number] [facility] 2023-03-27 2023-03-27 Outpatient FOG_A_Provi AOSM AOSM [id number] Nati 00:00:00 00:00:00 to [id number] [facility] 2022-02-25 2022-02-25 Telephone Michel, 1.2.840.1 [id number] [id number] Methodi 00:00:00 00:00:[address] 3.430.2.7 Hospit a .3.853391 l .8 2022-02-17 2022-02-17 Telephone Michel, 1.2.840.1 [id number] 2099 [id number] Methodi 00:00:00 00:00:00 Hussein R[address].1.[address] 3.430.2.7 Hospit a .3.157019 l .8 2022-02-17 2022-02-17 Telephone Michel 1.2.840.1 [id number] 2099 [id number] Methodi 00:00:00 00:00:00 Hussein R[address].1.[address] 3.430.2.7 Hospit a .3.051744 l .8 2020-11-17 2020-11-17 Laboratory Only, Adc Test [facility] 1.2.840. 114 [id number] Univers 14:13:39 14:28:39 Only Hiram Calderon 350.1.13.10 ity of [place] 4.2.7.2.686 [facility] [phone] [address] 2020-11-17 2020-11-17 Outpatient R KVNG [facility] [id number] Univers 14:00:00 14:00:00 HIRAM mccord of [facility] 2020-11-17 2020-11-17 Orders Doctor BACK 1.2.840.114 [id number] Univers 00:00:00 00:00:00 Only Unassigned, XOCHILT 350.1.13.10 ity of [place] [facility] 4.2.7.2.686 Juancarlos as [phone] [facility] [address] [place] 2020-10-22 2020-10-22 Urgent Provider, [facility] 1.2.840.114 [id number] Univers 11:44:51 13:11:01 Care Amina Ph[facility] 350.1.13.10 ity of [place] 4.2.7.2.686 Juancarlos as Professio [phone] [address] Office [address] [facility] 2020-10-22 2020-10-22 Outpatient R [facility] [id number] Univers 11:40:00 11:40:00 ity of [facility] 2020-08-30 2020-08-30 Telephone NAZANIN Zhao [id number] [facility] 00:00:00 00:00:00 Dilma LEMON 350.1.13.10 i ty [facility] 4.2.7.2.686 [place] as [phone] [address] 2020-08-30 2020-08-30 Telephone NAZANIN Zhao [id number] [id number] 00:00:00 00:00:00 Dilma LEMON 350.1.13.10 [facility] 42.7.2.686 [phone] [facility] 2020-08-28 2020-08-28 Urgent Provider, [facility] 1.2.840.114 [id number] Univers 18:30:49 19:11:44 Care Unknown, Attending Health 350.1.13.10 ity of [place] 4.2.7.2.686 Juancarlos as Professio [phone] [address] [facility] 2020-08-28 2020-08-28 Urgent Provider, [facility] [id number] 18:30:49 19:11:44 Care [facility] 350.1.13.10 Care [place] 4.2.7.2.686 Professio [phone] [place] [address] [address] 2020-08-28 2020-08-28 Outpatient R UNKNOWN, [facility] [id number] Univers 18:20:00 18:20:00 ATTENDING ity of [facility] 2020-08-28 2020-08-28 Letter Doctor NAZANIN 1.2.840.114 [id number] Univers 00:00:00 00:00:00 (Out) Unassigned, XOCHILT 350.1.13.10 ity of [place] [facility] 4.2.7.2.686 Juancarlos as [phone] [address] 2020-08-28 2020-08-28 Letter Doctor NAZANIN Tye.2.840.114 [id number] 00:00:00 00:00:00 (Out) Unassigned, X[facility]IL[facility] 350.1.13.10 [facility] 42.7.2.686 [phone] 044 2020-07-21 2020-07-21 Outpatient [facility], [facility] [id number] [address] [place] 00:00:00 00:00:[address] HUSSEIN [address] 2020-07-21 2020-07-21 Outpatient [facility] [id number] [place] 00:00:00 00:00:00 HUSSEIN [address] 2020-06-30 2020-06-30 Outpatient [facility] [id number] [place] 00:00:00 00:00:00 HUSSEIN [address] Results Test Description Test Test Results Result Source Time Comments Comments - MRI UP JNT W/O 2023-04- CONT RT 02 12:58:00 [facility]I [facility] : 1945 Sex: F Patient Name: MALI SHETTY Unit No: [id number] EXAMS: CPT CODE: [id number] MRI UP JN W/[place] [address] MR of the right shoulder without contrast TECHNIQUE: Paracoronal, parasagittal and axial multisequence images obtained. COMPARISON: None available. FINDINGS: Acromioclavicular joint: Moderate degenerative changes. Rotator cuff: A high-grade tear of the anterior to mid supraspinatus tendon measures 13 mm transversely, predominantly involving the undersurface and interstitial fibers. No significant tendon retraction is present. A low-grade undersurface tear of the superior subscapularis tendon is visualized. Rotator cuff musculature is normal in size and signal intensity. Long head biceps tendon: Tendinosis of the intra-articular biceps is present. Labrum: Fraying of the superior labrum is noted. Cartilage/ bone: No full thickness chondral defect. No acute fracture. No suspicious osseous lesion. The Other: A minimal glenohumeral joint effusion is visualized. There is a small amount of added fluid in the subacromial/subdeltoi d bursa. IMPRESSION: 1. High-grade tear of the anterior to mid supraspinatus insertion measuring 13 mm transversely. No retraction or muscle atrophy. 2. Biceps tendinosis. 3. No full-thickness glenohumeral cartilage loss. at 1258 Reported and signed by: Jim Espinoza M.D. CC: Lenard Toure MD Technologist: MEGHANN RAIN RT(R) Transcribed D/ (9336) [email or web address] NAME: HARMAN SHETTYCandace Perales [address] [facility] PHYS: Lenard Love MD : 1945 AGE: 77 SEX: F [place], [place] [address] LOC: Y.MRI PHONE #: [phone] EXAM DATE: 04/26/2023 STATUS: REG CLI FAX #: [phone] RAD #: D/C DT PAGE 1 Signed Report Patient Name: MALI SHETTY Unit No: [id number] EXAMS: CPT CODE: [id number] MRI [place] JNT W/[place] [address] (Continued) Orig Print D/T: S: 04/26/2023 (9401) [facility] NAME: MALI SHETTY [address] [facility] PHYS: Lenard Love MD : 1945 AGE: 77 SEX: F [place] [address] LOC: LD PHONE #: [phone] EXAM DATE: 04/26/2023 STATUS: SANIYA ROSENBAUM FAX #: [phone] RAD #: D/C DT PAGE 2 Signed Report LAB ONLY COVID 2020-09- COVID [facility] 03:38:00 etation/Recommendatio [facility] ns: Molecular NAAT Tests for Active Infection with the SARS-CoV-2 Virus: This result indicates a second test was positive, subsequent to an initial negative test for the SARS-CoV-2 virus that causes COVID-19 illness. This result indicates that the patient has been infected with the SARS-CoV-2 virus. The patient should be considered infectious and able to transmit the virus within the first 10 days after symptom onset in vihv-kb-tbjbiexg illness and within the first 20 days after symptom onset in critical illness and/or severe immunocompromise. Asymptomatic patients are considered infectious for the first 10 days subsequent to the initial positive test result. From the onset of symptoms, if any, this result is likely to remain positive for 2 to 4 weeks. Tests for IgM and/or IgG Antibodies to SARS-CoV-2 Virus: Testing for IgM and IgG antibodies 1-3 weeks after illness onset will indicate whether the patient has produced antibodies to the virus. At this time, it is not known if the production of antibodies - specifically IgG antibodies - indicates whether the patient is immune to future infections with the SARS-CoV-2 virus. --------- Interpretation Result Comments:These interpretation comments are based upon all COVID-19 testing the patient has had at [facility], including molecular NAAT testing (more commonly known as PCR testing and Rapid ID Now testing) and antibody testing. It does not take into account any testing that a patient has had outside of the [facility] medical record. [facility] LABORATORY SERVICESCOVID [id number] NAAT (no units) ? ? Date ? Value ? 10/22/2020 ? Positive (A) ? ? ? 08/28/2020 ? Not Detected ? [facility] COVID-19 (MOLECULAR TESTING 2020-10-23 22:42:00 NUCLEIC ACID AMPLIFICATION) Test Item Value Reference Range Interpretation Comme nts SARS-CoV-2 NAAT (test code = Positive Not Detected A 87387-2) RENY (test code = RENY) [employer] SARS-CoV-2 Assay is a nucleic acid amplification test intended for the qualitative detection of RNA from SARS-CoV-2 from nasopharyngeal (VISUAL LEAD) specimens. ?It is used under Emergency Use Authorization (EUA) by FDA. A positive result is indicative of the presence of SARS-CoV-2 RNA. ?Clinical correlation with patient history and other diagnostic information is necessary to determine patient infection status. A negative (Not Detected) result does not preclude SARS-CoV-2 infection. ?Clinical correlation with patient history and other diagnostic information should be used in patient management decisions. Invalid: Unable to generate a valid test result on this specimen. ?Please submit a new specimen for repeat testing if clinically indicated. Lab Interpretation (test code = Abnormal 16388-2) [facility] GRP A STREP (MOLECULAR)2020-10-22 18:54:00 Test Item Value Reference Range Interpretation Comments POCT GP A STREP (test code = Negative Negative - Negative 95682-0) [facility] FLU A AND B (MOLECULAR)2020-10-22 18:54:00 Test Item Value Reference Range Interpretation Comments POCT INFLUENZA A (test code = Negative Negative - Negative 3840) POCT INFLUENZA B (test code = Negative Negative - Negative 3841) [facility]
[2023-07-27] MEDS ORDERED: ONDANSETRON 4 MG/2 ML VIAL ONE (15:13)
[2023-07-27] MEDS ORDERED: MECLIZINE HCL 12.5 MG TAB ONE (15:13)
--- NOTE | 2023-07-27 15:35 | RAD REPORT ---
EXAM DESCRIPTION: CT - Head Brain Wo Cont - 07/27/2023 3:07 pm CLINICAL HISTORY: DIZZINESS COMPARISON: Head Brain Wo Cont dated 05/05/2016 TECHNIQUE: Noncontrast head CT images were obtained without IV contrast. Multiplanar reformats were generated and reviewed. All CT scans are performed using dose optimization technique as appropriate and may include automated exposure control or mA/KV adjustment according to patient size. FINDINGS: No intracranial hemorrhage, mass, or edema. Midline structures are unremarkable. Normal ventricular caliber for age with mild parenchymal volume loss. Gallegos-white matter differentiation is preserved, without evidence of acute infarct. No abnormal extra- axial fluid collections. Mastoid air cells and visualized portions of the paranasal sinuses are clear. No acute bony findings. IMPRESSION: No evidence of an acute intracranial process.
[2023-07-27 15:58] LABS: Absolute Lymphocytes (CBC) 2.2 K/uL (0.7-4.9); Hematocrit 45.2 % (36.0-45.0); Lymphocytes % 30.3 % (15.3-44.8); MCV 90.2 fL (80-100); MPV 7.8 fL (7.6-11.3); Platelets 248 thou/uL (152-406); RBC Red Blood Cell Count 5.02 M/uL (3.86-4.86)
[2023-07-27 16:09] LABS: Potassium 3.6 mEq/L (3.5-5.1); Troponin High Sensitivity 13.8 pg/mL (<58.9)
--- NOTE | 2023-07-27 16:17 | EDPHYS ---
Physician Documentation [facility] Name: Radha Shetty Age: 77 yrs Sex: Female : 1945 Arrival Date: 07/27/2023 Time: 14:38 Bed 5 Private MD: ED Physician Rema Phan HPI: 07/27 14:59 This 77 yrs old Female presents to ER via Wheelchair with complaints of Vertigo, sp3 Headache, Vomiting. 14:59 77-year-old female with history of hypertension, Crohn's, prior cataract surgery who is sp3 a patient of Dr. Hicks now presents to the ED with chief complaint of vertigo with room spinning, nausea and vomiting and mild headache that started earlier today. Patient called her daughter to pick her up from home due to her emesis and she brought her to the ED for evaluation. Currently she still feels dizziness although it stops when she is not moving her head. She does endorse right ear pain several days ago which is now almost fully resolved. She denies any ringing of her ear, trauma history, changes in vision or other neurological complaints. Review of systems she denies neck pain, chest pain, shortness of breath, abdominal pain, diarrhea, syncope, near syncope, weakness, change in speech, memory loss, or any other signs or symptoms at this time.. Historical: - Allergies: 14:48 Albuterol; ll1 14:48 Augmentin; ll1 14:48 Bactrim DS; ll1 14:48 Cafergot; ll1 14:48 Ceclor; ll1 14:48 Cipro; ll1 14:48 Crestor; ll1 14:48 Doxycycline; ll1 14:48 Erythromycin; ll1 14:48 ipratropium bromide; ll1 14:48 Lescol; ll1 14:48 Lipitor; ll1 14:48 Prednisone; ll1 14:48 seldane; ll1 14:48 Suprax; ll1 14:48 Tricor; ll1 14:48 Vytorin 10-10; ll1 14:48 Zocor; ll1 - PMHx: 14:48 Crohn's; Cataracts; Depression; Hypertension; mycobacterium avium intracllulare; ll1 - Immunization history:: Adult Immunizations up to date. - Social history:: Smoking status: Patient denies any tobacco usage or history of. ROS: 15:01 Constitutional: Negative for fever, chills, and weight loss, Eyes: Negative for injury, sp3 pain, redness, and discharge, ENT: Negative for injury, pain, and discharge, Neck: Negative for injury, pain, and swelling, Cardiovascular: Negative for chest pain, palpitations, and edema, Respiratory: Negative for shortness of breath, cough, wheezing, and pleuritic chest pain, Abdomen/GI: Negative for abdominal pain, nausea, vomiting, diarrhea, and constipation, Back: Negative for injury and pain, MS/Extremity: Negative for injury and deformity, Skin: Negative for injury, rash, and discoloration, Psych: Negative for depression, anxiety, suicide ideation, homicidal ideation, and hallucinations, Allergy/Immunology: Negative for hives, rash, and allergies, Endocrine: Negative for neck swelling, polydipsia, polyuria, polyphagia, and marked weight changes, Hematologic/Lymphatic: Negative for swollen nodes, abnormal bleeding, and unusual bruising, Exam: 15:01 Constitutional: This is a well developed, well nourished patient who is awake, alert, sp3 and in no acute distress. Head/Face: Normocephalic, atraumatic. Eyes: Pupils equal round and reactive to light, extra-ocular motions intact. Lids and lashes normal. Conjunctiva and sclera are non-icteric and not injected. Cornea within normal limits. Periorbital areas with no swelling, redness, or edema. ENT: Nares patent. No nasal discharge, no septal abnormalities noted. External auditory canals are clear. Oropharynx with no redness, swelling, or masses, exudates, or evidence of obstruction, uvula midline. Mucous membranes moist. Neck: Trachea midline, no thyromegaly or masses palpated, and no cervical lymphadenopathy. Supple, full range of motion without nuchal rigidity, or vertebral point tenderness. No Meningismus. Chest/axilla: Normal chest wall appearance and motion. Nontender with no deformity. No lesions are appreciated. Cardiovascular: Regular rate and rhythm with a normal S1 and S2. No gallops, murmurs, or rubs. Normal PMI, no JVD. No pulse deficits. Respiratory: Lungs have equal breath sounds bilaterally, clear to auscultation and percussion. No rales, rhonchi or wheezes noted. No increased work of breathing, no retractions or nasal flaring. Abdomen/GI: Soft, non-tender, with normal bowel sounds. No distension or tympany. No guarding or rebound. No evidence of tenderness throughout. Back: No spinal tenderness. No costovertebral tenderness. Full range of motion. Skin: Warm, dry with normal turgor. Normal color with no rashes, no lesions, and no evidence of cellulitis. MS/ Extremity: Pulses equal, no cyanosis. Neurovascular intact. Full, normal range of motion. Psych: Awake, alert, with orientation to person, place and time. Behavior, mood, and affect are within normal limits. 15:01 Neuro: Normal neurological exam with inducible vertigo noted on moving patient's head. Mild lateral nystagmus also noted. No vertical nystagmus noted. No other focal neurological deficit., Vital Signs: 14:45 BP 190 / 93; Pulse 88; Resp 18; Pulse Ox 99% on R/A; rs5 15:00 BP 177 / 123; Pulse 91; Resp 18; Temp 98; Pulse Ox 99% ; rs5 16:10 BP 173 / 93; Pulse 17; Resp 17; Pulse Ox 99% on R/A; rs5 MDM: 14:56 Patient medically screened. sp3 15:02 Data reviewed: vital signs, nurses notes, old medical records, lab test result(s), EKG, sp3 radiologic studies. ED course: 77-year-old female with likely peripheral vertigo as opposed to central in nature. Differential diagnosis includes viral syndrome induced peripheral vertigo, labyrinthitis, CVA, brain mass, ICH. The latter items are lower probability. Work-up will include laboratory values, EKG, CT scan of the head and treat with meclizine p.o. and ondansetron IV. Disposition pending work-up and patient course.. 16:15 ED course: Patient's symptoms of vertigo are fully resolved but does still complain of sp3 mild headache. We will administer ketorolac IV 15 mg and discharge patient home on meclizine. Patient has no further questions and is grateful for her care and will follow-up with her PCP. CT scan and labs demonstrate no significant abnormality.. 07/27 14:57 Order name: Basic Metabolic Panel; Complete Time: 16:12 sp3 07/27 14:57 Order name: CBC with Diff; Complete Time: 16:12 sp3 07/27 14:57 Order name: Troponin HS; Complete Time: 16:12 sp3 07/27 14:57 Order name: CT Head Brain wo Cont; Complete Time: 15:45 sp3 07/27 14:57 Order name: EKG; Complete Time: 14:58 sp3 07/27 14:57 Order name: Cardiac monitoring; Complete Time: 14:58 sp3 07/27 14:57 Order name: EKG - Nurse/Tech; Complete Time: 15:59 sp3 07/27 14:57 Order name: IV Saline Lock; Complete Time: 15:59 sp3 07/27 14:57 Order name: Labs collected and sent; Complete Time: 15:59 sp3 07/27 14:57 Order name: O2 Sat Monitoring; Complete Time: 15:59 sp3 Administered Medications: 15:10 Drug: Meclizine PO 25 mg PO once Route: PO; rs5 15:40 Follow up: Response: No adverse reaction; Nausea is decreased rs5 15:40 Drug: Ondansetron IVP 4 mg IVP once; over 2 minutes Route: IVP; Site: left hand; rs5 16:01 Follow up: Response: No adverse reaction; Nausea is decreased rs5 16:30 Drug: Ketorolac IVP 15 mg IVP once Route: IVP; Site: left hand; rs5 16:50 Follow up: Response: No adverse reaction; Pain is decreased rs5 Disposition Summary: 07/27/23 16:16 Discharge Ordered Notes: Location: Home sp3 Condition: Stable sp3 Diagnosis - Other peripheral vertigo sp3 Followup: sp3 - With: Private Physician - When: Upon discharge from the Emergency Department - Reason: Continuance of care Discharge Instructions: - Discharge Summary Sheet sp3 - Vertigo sp3 Forms: - Medication Reconciliation Form sp3 - Thank You Letter sp3 - Antibiotic Education sp3 - Prescription Opioid Use sp3 - Patient Portal Instructions sp3 - Leadership Thank You Letter sp3 Prescriptions: - Meclizine 25 mg Oral Tablet - take 1 tablet ORAL route every 8 hours As needed; 30 tablet; Refills: 0, sp3 Product Selection Permitted Signatures: Dispatcher [employer] EDLori Roberson RN RN aa5 Juan Bravo RN RN ll1 Rema Phan MD MD sp3 Ari Morales RN RN rs5 Corrections: (The following items were deleted from the chart) 16:31 14:45 Social history: Smoking status: Patient denies any tobacco usage or history of. rs5 aa5
--- NOTE | 2023-07-27 16:17 | ER ---
Nurse's Notes [facility] Name: Radha Shetty Age: 77 yrs Sex: Female : 1945 Arrival Date: 07/27/2023 Time: 14:38 Bed 5 Private MD: Diagnosis: Other peripheral vertigo Presentation: 07/27 14:45 Chief complaint: Patient states: Headache, nausea, vomiting, vertigo since nine this rs5 morning. Coronavirus screen: At this time, the client does not indicate any symptoms associated with coronavirus-19. Ebola Screen: No symptoms or risks identified at this time. Initial Sepsis Screen: Does the patient meet any 2 criteria? No. Patient's initial sepsis screen is negative. Does the patient have a suspected source of infection? No. Patient's initial sepsis screen is negative. Risk Assessment: Do you want to hurt yourself or someone else? Patient reports no desire to harm self or others. Onset of symptoms was July 27, 2023 at 09:00. 14:45 Method Of Arrival: Wheelchair rs5 14:45 Acuity: AZUL 3 rs5 Triage Assessment: 14:45 Headache History: Denies prior headaches. General: Appears uncomfortable, Behavior is rs5 cooperative, anxious. Pain: Complains of pain in head Pain does not radiate. Pain currently is 3 out of 10 on a pain scale. Quality of pain is described as aching, Pain began 9 a.m. this morning Is continuous, Also complains of nausea. Neuro: Level of Consciousness is awake, alert, obeys commands, Oriented to person, place, time, situation. Historical: - Allergies: 14:48 Albuterol; ll1 14:48 Augmentin; ll1 14:48 Bactrim DS; ll1 14:48 Cafergot; ll1 14:48 Ceclor; ll1 14:48 Cipro; ll1 14:48 Crestor; ll1 14:48 Doxycycline; ll1 14:48 Erythromycin; ll1 14:48 ipratropium bromide; ll1 14:48 Lescol; ll1 14:48 Lipitor; ll1 14:48 Prednisone; ll1 14:48 seldane; ll1 14:48 Suprax; ll1 14:48 Tricor; ll1 14:48 Vytorin 10-10; ll1 14:48 Zocor; ll1 - PMHx: 14:48 Crohn's; Cataracts; Depression; Hypertension; mycobacterium avium intracllulare; ll1 - Immunization history:: Adult Immunizations up to date. - Social history:: Smoking status: Patient denies any tobacco usage or history of. Screenin:08 [facility] ED Fall Risk Assessment (Adult) History of falling in the last 3 months, rs5 including since admission No falls in past 3 months (0 pts) Confusion or Disorientation No (0 pts) Intoxicated or Sedated No (0 pts) Impaired Gait Yes (1 pt) Mobility Assist Device Used No (0 pt) Altered Elimination No (0 pt) Score/Fall Risk Level 0 - 2 = Low Risk Oriented to surroundings, Maintained a safe environment. Abuse screen: Denies threats or abuse. Nutritional screening: No deficits noted. Tuberculosis screening: No symptoms or risk factors identified. Assessment: 14:50 General: Appears distressed, uncomfortable, Behavior is cooperative. rs5 14:50 Pain: Complains of pain in head Pain does not radiate. Pain currently is 3 out of 10 on rs5 a pain scale. Quality of pain is described as aching, Pain began nine am this morning Is continuous. Neuro: Level of Consciousness is awake, alert, obeys commands, Oriented to person, place, time, situation. Neuro: Reports dizziness, since this morning. Cardiovascular: Heart tones S1 S2 present Rhythm is regular. Respiratory: Airway is patent Respiratory effort is even, unlabored, Respiratory pattern is regular, symmetrical, Breath sounds are clear bilaterally. GI: Abdomen is round non-distended, Bowel sounds present X 4 quads. Abd is soft and non tender X 4 quads. Reports nausea, vomiting. : No signs and/or symptoms were reported regarding the genitourinary system. EENT: No signs and/or symptoms were reported regarding the EENT system. Derm: Skin is intact, Skin is pink, warm \T\ dry. Musculoskeletal: Range of motion: intact in all extremities. 15:55 Neuro: Denies dizziness. GI: Patient currently denies nausea, vomiting. rs5 15:55 Pain: Complains of pain in head Pain does not radiate. Pain currently is 6 out of 10 on rs5 a pain scale. Quality of pain is described as aching, Is continuous. 16:00 Reassessment: Patient and/or family updated on plan of care and expected duration. Pain rs5 level reassessed. Patient is alert, oriented x 3, equal unlabored respirations, skin warm/dry/pink. Patient denies pain at this time. 16:37 Reassessment: Patient and/or family updated on plan of care and expected duration. Pain rs5 level reassessed. Patient is alert, oriented x 3, equal unlabored respirations, skin warm/dry/pink. Vital Signs: 14:45 BP 190 / 93; Pulse 88; Resp 18; Pulse Ox 99% on R/A; rs5 15:00 BP 177 / 123; Pulse 91; Resp 18; Temp 98; Pulse Ox 99% ; rs5 16:10 BP 173 / 93; Pulse 17; Resp 17; Pulse Ox 99% on R/A; rs5 ED Course: 14:42 Patient arrived in ED. mg5 14:45 Ari Morales, RN is Primary Nurse. rs5 14:47 Rema Phan MD is Attending Physician. sp3 14:48 Arm band placed on Patient placed in an exam room, on a stretcher. ll1 14:50 Lori De, GERARDO is Primary Nurse. aa5 14:50 Patient has correct armband on for positive identification. Bed in low position. Call rs5 light in reach. Side rails up X2. 14:53 Triage completed. aa5 15:07 CT Head Brain wo Cont In Process Unspecified. EDMS 15:20 Missed attempt(s): 22 gauge in right forearm. Bleeding controlled, band aid applied, rs5 catheter tip intact. 15:30 Inserted saline lock: 24 gauge in left hand, using aseptic technique. Blood collected. rs5 16:50 No provider procedures requiring assistance completed. rs5 16:50 IV discontinued, intact, bleeding controlled, No redness/swelling at site. Pressure rs5 dressing applied. Administered Medications: 15:10 Drug: Meclizine PO 25 mg PO once Route: PO; rs5 15:40 Follow up: Response: No adverse reaction; Nausea is decreased rs5 15:40 Drug: Ondansetron IVP 4 mg IVP once; over 2 minutes Route: IVP; Site: left hand; rs5 16:01 Follow up: Response: No adverse reaction; Nausea is decreased rs5 16:30 Drug: Ketorolac IVP 15 mg IVP once Route: IVP; Site: left hand; rs5 16:50 Follow up: Response: No adverse reaction; Pain is decreased rs5 Medication: 16:50 VIS not applicable for this client. rs5 Outcome: 16:16 Discharge ordered by . sp3 16:50 Discharged to home via wheelchair, rs5 16:50 Condition: stable 16:50 Discharge instructions given to patient, family, 16:59 Patient left the ED. rs5 Signatures: Dispatcher [employer] EDMS Lori De RN RN aa5 Juan Bravo RN RN ll1 Rema Phan MD MD sp3 Ari Morales RN RN rs5 Negra Zavala mg5 Corrections: (The following items were deleted from the chart) 16:30 14:45 Chief complaint: Patient states: Headache, nausea, vomiting, vertigo since nine rs5 this morning. aa5 16:30 14:45 Coronavirus screen: At this time, the client does not indicate any symptoms rs5 associated with coronavirus-19. aa5 16:30 14:45 Ebola Screen: No symptoms or risks identified at this time. aa5 rs5 16: 14:45 Initial Sepsis Screen: Does the patient meet any 2 criteria? No. Patient's rs5 initial sepsis screen is negative. Does the patient have a suspected source of infection? No. Patient's initial sepsis screen is negative. aa5 16:30 14:45 Risk Assessment: Do you want to hurt yourself or someone else? Patient reports no rs5 desire to harm self or others. aa5 16:30 14:45 Onset of symptoms was July 27, 2023 at 09:00 aa5 rs5 16: 14:45 Method Of Arrival: Wheelchair aa rs5 16: 14:45 BP 190 / 93; Pulse 88bpm; Resp 18bpm; Pulse Ox 99% RA; aa5 rs5 16: 14:45 Acuity: AZUL 3 aa5 rs5 16: 14:45 Social history: Smoking status: Patient denies any tobacco usage or history of. rs5 aa5 16:31 14:45 Headache History: Denies prior headaches. aa5 rs5 16: 14:45 General: Appears uncomfortable, Behavior is cooperative, anxious, aa5 rs5 16:31 14:45 Pain: Complains of pain in head Pain does not radiate. Pain currently is 3 out of rs5 10 on a pain scale. Quality of pain is described as aching, Pain began 9 a.m. this morning Is continuous, Also complains of nausea, aa5 16:31 14:45 Neuro: Level of Consciousness is awake, alert, obeys commands, Oriented to rs5 person, place, time, situation, aa5 16:32 16:31 Primary Nurse role handed off by Lori De, GERARDO rs5 rs5 16:32 16:31 Ari Morales, GERARDO is Primary Nurse. rs5 rs5 17:08 16:06 Reassessment: rs5 rs5 17:09 15:55 Reassessment: Patient and/or family updated on plan of care and expected rs5 duration. Pain level reassessed. Patient is alert, oriented x 3, equal unlabored respirations, skin warm/dry/pink. rs5 17:09 16:37 Reassessment: Patient and/or family updated on plan of care and expected rs5 duration. Pain level reassessed. Patient is alert, oriented x 3, equal unlabored respirations, skin warm/dry/pink. rs5 17:12 15:55 Pain: Denies pain. rs5 rs5 17:12 16:10 Pain: Complains of pain in head Pain does not radiate. Pain currently is 6 out of rs5 10 on a pain scale. Quality of pain is described as aching, Is continuous, rs5
[2023-07-27] MEDS ORDERED: KETOROLAC 30 MG/ML INJ ONE (16:39)
[2023-07-27 17:38] VITALS: BP 190/93; O2SAT 99
== END 2023-07-27 16:59 | disposition home or self-care (01) ==
LOC: ER 14:38
DX: H81.399 Other peripheral vertigo, unspecified ear (principal); Z88.1 Allergy status to other antibiotic agents; Z88.3 Allergy status to other anti-infective agents; Z88.8 Allergy status to other drugs, medicaments and biological substances
CPT/HCPCS: 93005; 85025; 80048; 36415; 84484; 70450; 96375; 96374; 99284; J8597; J2405

== ENCOUNTER 2025-07-07 22:33 | Emergency (ER) | payer OTHER ==
[2025-07-07] MEDS ORDERED: NA CHLORIDE 0.9% 500 ML ONE (23:37)
[2025-07-07] MEDS ORDERED: FAMOTIDINE 20 MG/2 ML VIAL IV ONE (23:37)
[2025-07-07] MEDS ORDERED: DIPHENHYDRAMINE 50 MG/ML VIAL ONE (23:37)
--- NOTE | 2025-07-08 00:11 | EDPHYS ---
Physician Documentation [facility] Name: Radha Shetty Age: 79 yrs Sex: Female : 1945 Arrival Date: 07/07/2025 Time: 22:33 Bed 5 Private MD: ED Physician Juan Luis Pleitez HPI: 07/07 23:33 This 79 yrs old Female presents to ER via Ambulatory with complaints of rigo Allergic Reaction, To meds. 23:33 The patient presents with itching, rash, redness of skin. Onset: The symptoms/episode rigo began/occurred just prior to arrival, today. Associated signs and symptoms: Pertinent positives: hives, swelling. Possible causes: REPATHA. At home the patient or guardian has treated the symptoms with Benadryl. Severity of symptoms: At their worst the symptoms were mild moderate in the emergency department the symptoms have improved mildly. The patient has not experienced similar symptoms in the past. Historical: - Allergies: 22:46 Albuterol; br2 22:46 Augmentin; br2 22:46 Bactrim DS; br2 22:46 Cafergot; br2 22:46 Ceclor; br2 22:46 Cipro; br2 22:46 Crestor; br2 22:46 Doxycycline; br2 22:46 Erythromycin; br2 22:46 ipratropium bromide; br2 22:46 Lescol; br2 22:46 Lipitor; br2 22:46 Prednisone; br2 22:46 seldane; br2 22:46 Suprax; br2 22:46 Tricor; br2 22:46 Vytorin 10-10; br2 22:46 Zocor; br2 - PMHx: 22:46 Cataracts; Crohn's; Depression; Hypertension; mycobacterium avium intracllulare; br2 - Immunization history:: Adult Immunizations up to date. - Infectious Disease History:: CDIFF, Denies. - Social history:: Smoking status: Patient denies any tobacco usage or history of. Patient/guardian denies using alcohol, street drugs. ROS: 23:34 Constitutional: Negative for fever, chills, and weight loss, Eyes: Negative for injury, rigo pain, redness, and discharge, ENT: Negative for injury, pain, and discharge, Neck: Negative for injury, pain, and swelling, Cardiovascular: Negative for chest pain, palpitations, and edema, Respiratory: Negative for shortness of breath, cough, wheezing, and pleuritic chest pain, Abdomen/GI: Negative for abdominal pain, nausea, vomiting, diarrhea, and constipation, Back: Negative for injury and pain, : Negative for injury, bleeding, discharge, and swelling, MS/Extremity: Negative for injury and deformity, Neuro: Negative for headache, weakness, numbness, tingling, and seizure, Psych: Negative for depression, anxiety, suicide ideation, homicidal ideation, and hallucinations, Allergy/Immunology: Negative for hives, rash, and allergies, Endocrine: Negative for neck swelling, polydipsia, polyuria, polyphagia, and marked weight changes, Hematologic/Lymphatic: Negative for swollen nodes, abnormal bleeding, and unusual bruising, 23:34 Skin: Positive for erythema, rash, swelling, Exam: 23:34 Constitutional: This is a well developed, well nourished patient who is awake, alert, rigo and in no acute distress. Head/Face: Normocephalic, atraumatic. Eyes: Pupils equal round and reactive to light, extra-ocular motions intact. Lids and lashes normal. Conjunctiva and sclera are non-icteric and not injected. Cornea within normal limits. Periorbital areas with no swelling, redness, or edema. ENT: Nares patent. No nasal discharge, no septal abnormalities noted. Tympanic membranes are normal and external auditory canals are clear. Oropharynx with no redness, swelling, or masses, exudates, or evidence of obstruction, uvula midline. Mucous membranes moist. Neck: Trachea midline, no thyromegaly or masses palpated, and no cervical lymphadenopathy. Supple, full range of motion without nuchal rigidity, or vertebral point tenderness. No Meningismus. Chest/axilla: Normal chest wall appearance and motion. Nontender with no deformity. No lesions are appreciated. Cardiovascular: Regular rate and rhythm with a normal S1 and S2. No gallops, murmurs, or rubs. Normal PMI, no JVD. No pulse deficits. Respiratory: Lungs have equal breath sounds bilaterally, clear to auscultation and percussion. No rales, rhonchi or wheezes noted. No increased work of breathing, no retractions or nasal flaring. Abdomen/GI: Soft, non-tender, with normal bowel sounds. No distension or tympany. No guarding or rebound. No evidence of tenderness throughout. Back: No spinal tenderness. No costovertebral tenderness. Full range of motion. Female : Normal external genitalia. MS/ Extremity: Pulses equal, no cyanosis. Neurovascular intact. Full, normal range of motion., bilateral aka Neuro: Awake and alert, GCS 15, oriented to person, place, time, and situation. Cranial nerves II-XII grossly intact. Motor strength 5/5 in all extremities. Sensory grossly intact. Cerebellar exam normal. Normal gait. Psych: Awake, alert, with orientation to person, place and time. Behavior, mood, and affect are within normal limits. 23:34 Skin: LOCAL , INJECTION, Vital Signs: 22:42 BP 143 / 82; Pulse 72; Resp 18; Temp 97.1; Pulse Ox 100% on R/A; Weight 65.77 kg; br2 Height 5 ft. 3 in. ; Pain 5/10; 23:56 BP 141 / 68; Pulse 69; Resp 19; Pulse Ox 99% on R/A; kd3 07/08 00:38 BP 151 / 71; Pulse 62; Resp 16; Pulse Ox 99% on R/A; kd3 07/07 22:42 Body Mass Index 25.69 (65.77 kg, 160.02 cm) br2 07/07 22:42 Pain Scale: Adult br2 MDM: 07/07 22:53 Medical Screening Exam initiated rigo 23:36 Differential diagnosis: anaphylaxis, angioedema, bronchospasm, urticaria. Differential rigo Diagnosis altered mental status, sepsis, flu. Data reviewed: vital signs, nurses notes. Consideration of Admission/Observation Escalation of care including admission/observation considered. I considered the following discharge prescriptions or medication management in the emergency department Medications were administered in the Emergency Department. See MAR. Test considered but Not performed: X-ray: NO CXR. Historians other than the Patient: PT WELL INFORMED. Care significantly affected by the following chronic conditions: Hypertension, CATARACTS, DEPRESSION, CROHNS, MAC. 07/07 22:55 Order name: CBC with Diff rigo 07/07 22:55 Order name: CMP rigo 07/07 22:55 Order name: UA Rfx Carlos Cult if indicated rigo Administered Medications: 23:57 Drug: NS 0.9% IV 500 ml 500 ml IV at 1 bolus once; to be given as a bolus over 30 kd3 minutes Volume: 500 ml; Route: IV; Rate: 1 bolus; Site: right hand; 07/08 00:19 Follow up: IV Status: Completed infusion; IV Intake: 500ml kd3 07/07 23:57 Drug: diphenhydrAMINE IVP 37.5 mg IVP once Route: IVP; Site: right hand; kd3 07/08 00:20 Follow up: Response: No adverse reaction kd3 07/07 23:57 Drug: Famotidine IVP 40 mg IVP once; dilute with 10 mL 0.9% NaCl; give over 2 minutes kd3 Route: IVP; Site: right hand; 07/08 00:20 Follow up: Response: No adverse reaction kd3 07/07 23:57 Drug: Decadron - Dexamethasone IVP 10 mg IVP once Route: IVP; Site: right hand; kd3 07/08 00:20 Follow up: Response: No adverse reaction kd3 Disposition Summary: 07/08/25 00:11 Discharge Ordered Notes: Location: Home rigo Problem: new rigo Symptoms: have improved rigo Condition: Stable rigo Diagnosis - Adverse effect of unspecified drugs, medicaments and biological substances - RAPATHAcha - Allergy status to unspecified drugs, medicaments and biological substances status - [facility] LOCAL REACTION Followup: rigo - With: Private Physician - When: 2 - 3 days - Reason: Recheck today's complaints, Continuance of care, Re-evaluation by your physician Followup: rigo - With: Brendan Hicks MD - When: 2 - 3 days - Reason: Recheck today's complaints, Re-evaluation by your physician Discharge Instructions: - Discharge Summary Sheet rigo - Drug Allergy, [id number] rigo - Drug Allergy rigo - Angioedema [facility] - Angioedema, [id number] [facility] Forms: - Medication Reconciliation Form [facility] - Antibiotic Education [facility] - Prescription Opioid Use [facility] - Patient Portal Instructions [facility] - Leadership Thank You Letter [facility] Prescriptions: - EpiPen 2-Fadi - inject 1 application INTRAMUSCULAR route as directed; 2 Pack; Refills: 0, [facility] Product Selection Permitted - Benadryl 25 mg Oral capsule - take 2 capsule ORAL route every 6 hours As needed; 36 tablet; Refills: 0, [facility] Product Selection Permitted - Pepcid 20 mg Oral tablet - take 1 tablet ORAL route every 12 hours for 21 days; 42 tablet; Refills: 0, rigo Product Selection Permitted - Dexamethasone 4mg Oral tablet - take 1 tablet ORAL route daily for 4 days; 4 tablet; Refills: 0, Product rigo Selection Permitted Signatures: Dispatcher [employer] EDJuan Luis Schultz MD MD cha Doucette, Kyli, RN RN kd3 Tori Marcum RN RN br2 Corrections: (The following items were deleted from the chart) 07/07 22:55 22:55 CBC+H.LAB.BRZ ordered. EDMS EDMS 22:55 22:55 COMPREHENSIVE METABOLIC PANEL+C.LAB.BRZ ordered. EDMS EDMS 22:55 22:55 UA Rfx Carlos Cult if indicated+U.LAB.BRZ ordered. EDMS EDMS
--- NOTE | 2025-07-08 00:11 | ER ---
Nurse's Notes [facility] Name: Radha Shetty Age: 79 yrs Sex: Female : 1945 Arrival Date: 07/07/2025 Time: 22:33 Bed 5 Private MD: Diagnosis: Adverse effect of unspecified drugs, medicaments and biological substances-RAPATHA;Allergy status to unspecified drugs, medicaments and biological substances status-LOCAL REACTION Presentation: 07/07 22:42 Chief complaint: Patient states: TOOK RAPATHA INJECTION TODAY TO [facility]SEVERAL HOURS br2 LATER SHE NOTICIED REDNESS, ITCHING TO INJECTION SITE. RASH HAS SPREAD UPPER ABDOMEN AND FEELS ITCHING TO NECK, LIPS. PT TOOK BENADRYL 25MG AT 2100. Coronavirus screen: Client denies travel out of the [place] in the last 14 days. Ebola Screen: Patient denies exposure to infectious person. Onset: The symptoms/episode began/occurred today. Anaphylaxis evaluation, no signs or symptoms of anaphylaxis were noted. Initial Sepsis Screen: Does the patient meet any 2 criteria? No. Patient's initial sepsis screen is negative. Does the patient have a suspected source of infection? No. Patient's initial sepsis screen is negative. Risk Assessment: Do you want to hurt yourself or someone else? Patient reports no desire to harm self or others. Onset of symptoms was July 07, 2025 at 21:00. 22:42 Method Of Arrival: Ambulatory br2 22:42 Acuity: AZUL 4 br2 Triage Assessment: 22:46 General: Appears in no apparent distress. comfortable, Behavior is calm, cooperative. br2 Pain: Complains of pain in right lower quadrant Pain currently is 5 out of 10 on a pain scale. Historical: - Allergies: 22:46 Albuterol; br2 22:46 Augmentin; br2 22:46 Bactrim DS; br2 22:46 Cafergot; br2 22:46 Ceclor; br2 22:46 Cipro; br2 22:46 Crestor; br2 22:46 Doxycycline; br2 22:46 Erythromycin; br2 22:46 ipratropium bromide; br2 22:46 Lescol; br2 22:46 Lipitor; br2 22:46 Prednisone; br2 22:46 seldane; br2 22:46 Suprax; br2 22:46 Tricor; br2 22:46 Vytorin 10-10; br2 22:46 Zocor; br2 - PMHx: 22:46 Cataracts; Crohn's; Depression; Hypertension; mycobacterium avium intracllulare; br2 - Immunization history:: Adult Immunizations up to date. - Infectious Disease History:: CDIFF, Denies. - Social history:: Smoking status: Patient denies any tobacco usage or history of. Patient/guardian denies using alcohol, street drugs. Screenin:58 [facility] ED Fall Risk Assessment (Adult) History of falling in the last 3 months, kd3 including since admission No falls in past 3 months (0 pts) Confusion or Disorientation No (0 pts) Intoxicated or Sedated No (0 pts) Impaired Gait No (0 pts) Mobility Assist Device Used No (0 pt) Altered Elimination No (0 pt) Score/Fall Risk Level 0 - 2 = Low Risk Maintained a safe environment. Abuse screen: Denies threats or abuse. Denies injuries from another. Nutritional screening: No deficits noted. Tuberculosis screening: No symptoms or risk factors identified. Assessment: 23:56 General: Appears in no apparent distress. Behavior is cooperative, anxious. Neuro: kd3 Level of Consciousness is awake, alert, obeys commands, Oriented to person, place, time, situation. Cardiovascular: Capillary refill < 3 seconds Patient's skin is warm and dry. Respiratory: Airway is patent Respiratory effort is even, unlabored, Breath sounds are clear bilaterally. 07/08 00:37 Reassessment: Patient and/or family updated on plan of care and expected duration. Pain kd3 level reassessed. Patient is alert, oriented x 3, equal unlabored respirations, skin warm/dry/pink. Patient states feeling better. Patient states symptoms have improved. General: PT CONFIRMS SHE HAS A RIDE HOME FOR TONIGHT. . Vital Signs: 07/07 22:42 BP 143 / 82; Pulse 72; Resp 18; Temp 97.1; Pulse Ox 100% on R/A; Weight 65.77 kg; br2 Height 5 ft. 3 in. ; Pain 5/10; 23:56 BP 141 / 68; Pulse 69; Resp 19; Pulse Ox 99% on R/A; kd3 07/08 00:38 BP 151 / 71; Pulse 62; Resp 16; Pulse Ox 99% on R/A; kd3 07/07 22:42 Body Mass Index 25.69 (65.77 kg, 160.02 cm) br2 07/07 22:42 Pain Scale: Adult br2 ED Course: 07/07 22:35 Patient arrived in ED. mr 22:46 Triage completed. br2 22:46 Arm band placed on right wrist. br2 22:52 Juan Luis Pleitez MD is Attending Physician. rigo 23:14 Damaris Alba RN is Primary Nurse. kd3 23:56 Inserted saline lock: 22 gauge in right hand, using aseptic technique. Blood collected. kd3 Flushed with 10 mL NS. 23:57 UA Rfx Carlos Cult if indicated Sent. kd3 23:57 CMP Sent. kd3 23:57 CBC with Diff Sent. kd3 23:58 Patient has correct armband on for positive identification. Provided Education on: IV kd3 MEDICATIONS . 07/08 00:11 Brendan Hicks MD is Referral Physician. [facility] 00:37 No provider procedures requiring assistance completed. IV discontinued, intact, kd3 bleeding controlled, No redness/swelling at site. Pressure dressing applied. Administered Medications: 07/07 23:57 Drug: NS 0.9% IV 500 ml 500 ml IV at 1 bolus once; to be given as a bolus over 30 kd3 minutes Volume: 500 ml; Route: IV; Rate: 1 bolus; Site: right hand; 07/08 00:19 Follow up: IV Status: Completed infusion; IV Intake: 500ml kd3 07/07 23:57 Drug: diphenhydrAMINE IVP 37.5 mg IVP once Route: IVP; Site: right hand; kd3 07/08 00:20 Follow up: Response: No adverse reaction kd3 07/07 23:57 Drug: Famotidine IVP 40 mg IVP once; dilute with 10 mL 0.9% NaCl; give over 2 minutes kd3 Route: IVP; Site: right hand; 07/08 00:20 Follow up: Response: No adverse reaction kd3 07/07 23:57 Drug: Decadron - Dexamethasone IVP 10 mg IVP once Route: IVP; Site: right hand; kd3 07/08 00:20 Follow up: Response: No adverse reaction kd3 Medication: 07/07 23:58 VIS not applicable for this client. kd3 Intake: 07/08 00:19 IV: 500ml; Total: 500ml. kd3 Outcome: 00:11 Discharge ordered by . rigo 00:37 Discharged to home ambulatory, kd3 00:37 Condition: stable 00:37 Discharge instructions given to patient, Instructed on discharge instructions, follow up and referral plans. medication usage, Demonstrated understanding of instructions, follow-up care, medications, Prescriptions given X 4, 00:49 Patient left the ED. kd3 Signatures: Juan Luis Pleitez MD MD cha Rivera, Mary, Reg Reg Damaris Alba, RN RN kd3 Tori Marcum RN RN br2
[2025-07-08 00:24] LABS: Hemoglobin 14.9 g/dL (12.0-15.0); MPV 7.8 fL (7.6-11.3); White Blood Count 8.20 thou/uL (4.3-10.9)
[2025-07-08 00:28] LABS: Absolute Lymphocytes (CBC) 3.2 K/uL (0.7-4.9); Hematocrit 44.1 % (36.0-45.0); MCH 31.1 pg (27.0-35.0); MCHC 33.9 g/dL (32.0-36.0); MCV 91.8 fL (80-100); Nucleated RBC Absolute Count 0.0 (0-0); Nucleated Red Blood Cells % 0.1 % (0-0); RBC Red Blood Cell Count 4.80 M/uL (3.86-4.86)
[2025-07-08 00:48] LABS: ALT/SGPT 31.0 U/L (13-56); Albumin 3.7 g/dL (3.4-5.0); Albumin/Globulin Ratio 1.2 (1.1-1.8); Alkaline Phosphatase 71.0 U/L (45-117); Anion Gap 7.3 mEq/L (5.0-15.0); BUN Blood Urea Nitrogen 12.0 mg/dL (7-18); Globulin 3.2 g/dL (2.3-3.5); Glucose Level 94.0 mg/dL (74-106); Sqamous Epithelial <5 /HPF (None Seen); Urine Culture Reflex Order NOT NEEDED; Urine Microscopic Reflex YN ORDER UMIC
[2025-07-08 00:49] LABS: AST/SGOT 27.0 U/L (15-37); Potassium 4.3 mEq/L (3.5-5.1)
[2025-07-08 11:17] VITALS: TEMP 97.1
[2025-07-08 11:20] VITALS: O2SAT 99
[2025-07-08 11:22] VITALS: BP 151/71
== END 2025-07-08 00:49 | disposition home or self-care (01) ==
LOC: ER 22:33
DX: R21 Rash and other nonspecific skin eruption (principal); Z88.8 Allergy status to other drugs, medicaments and biological substances
CPT/HCPCS: 85025; 81001; 36415; 80053; 96375; 96374; 99284; J1200; J1100; J7040